=== PATIENT | female | born 1995 | race Caucasian/White ===

== ENCOUNTER → 2017-11-18 09:11 | Outpatient (CLI) | payer OTHER, SELFPAY ==
--- NOTE | 2017-11-18 09:23 | US_ITS ---
STUDY: ABDOMINAL ULTRASOUND - RIGHT UPPER QUADRANT REASON FOR VISIT: Female, 22 years old. Epigastric pain for 2 months. TECHNIQUE: Ultrasound evaluation of the right upper quadrant was performed with real-time and static parham-scale imaging. TECHNICAL QUALITY: Adequate. COMPARISON: Prior comparable comparison studies are not available for review at this time. FINDINGS: Liver: The liver measures 13.9 cm. There is normal echogenicity of the liver. The bile ducts are within normal limits. There is hepatic color flow. The direction of portal flow is hepatopetal. There is no demonstrated mass lesion. Gallbladder: Normal distended gallbladder. The gallbladder wall measures 2.9 mm. There is a negative sonographic Garcia's sign. There is no pericholecystic fluid. There are no gallstones. Common Bile Duct (C.B.D.): The common bile duct measures mm. Pancreas: Normal size of the head, body and tail of the pancreas. There is normal echogenicity of the pancreas. There is no demonstrated pancreatic mass or cyst. Right Kidney: Normal size of the right kidney. The right kidney measures 10.4 x 4.2 x 5.1 cm. Normal renal cortex. The right cortex measures 1.3 cm. There is no demonstrated renal mass or cyst. There is no right hydronephrosis. US/Abdomen Limited IMPRESSION: No sonographic evidence of acute right upper quadrant abdominal disease. Electronically Signed: Radha Zapata MD at 13:09 EST , Service support ,
== END ==
PROVIDERS: Family Provider Family Medicine; PCP Family Medicine; Visit Provider Family Medicine
DX: R10.13 Epigastric pain (principal)
CPT/HCPCS: 76705

== ENCOUNTER → 2017-11-26 15:19 | Outpatient (CLI) | payer OTHER, SELFPAY ==
[2017-11-26 18:03] LABS: Absolute Lymphocyte Count 2.19 X10^3/ul (0.83-4.51); Absolute Neutrophil Count 5.7 X10^3/uL (2.0-7.7); Basophil# 0.03 X10^3/uL; Basophil% 0.3 % (0-1); Eosinophil# 0.12 X10^3/uL; Eosinophils% 1.4 % (0-5); Hematocrit 38.2 % (37-47); Hemoglobin 12.2 g/dl (12.0-15.0); Lymphocyte # 2.19 X10^3/ul (4.0); Lymphocyte % 25.5 % (19-41); Mean Corp Hgb Conc 31.9 g/gl (32-36); Mean Corpuscular Hgb 27.3 pg (27.0-32.0); Mean Corpuscular Volume 85.5 fL (81-99); Mean Platelet Vol. 10.9 fl (6.2-12.0); Monocyte# 0.49 X10^3/uL; Monocyte% 5.7 % (0-10); Neutrophil # 5.74 X10^3/uL (2.7-7.7); Platelet Count 264 K/mm3 (150-450); RBC Distribution Width SD 40.5 fl (35.1-43.9); Red Blood Count 4.47 M/mm3 (4.2-5.4); White Blood Count 8.6 K/mm3 (4.4-11.0)
[2017-11-26 18:06] LABS: POSITIVE COUNT NO; POSITIVE DIFFERENTIAL NO; POSITIVE MORPHOLOGY NO
[2017-11-26 18:17] LABS: Erythrocyte Sedimentation Rate 3 mm/hr (0-20)
[2017-11-28 16:11] LABS: Endomysial Antibody IgA Negative (Negative)
[2017-11-29 07:16] LABS: Deamidated Gliadin IgA 2 units (0-19); Deamidated Gliadin IgG 3 units (0-19); Immunoglobulin A 120 mg/dL (87-352); t-Transglutaminase IgA <2 U/mL (0-3)
== END ==
PROVIDERS: Family Provider Family Medicine; PCP Family Medicine; Visit Provider Family Medicine
DX: R10.13 Epigastric pain (principal)
CPT/HCPCS: 36415; 82784; 83516; 85025; 85652; 86255; 86677

== ENCOUNTER → 2018-09-10 16:44 | Outpatient (CLI) | payer OTHER, SELFPAY ==
[2018-09-15 15:54] LABS: HPV Reflexed? NOT INDICATED
== END ==
PROVIDERS: Family Provider Family Medicine; PCP Family Medicine; Visit Provider Obstetrics & Gynecology
DX: Z12.4 Encounter for screening for malignant neoplasm of cervix (principal)
CPT/HCPCS: 88175; G0145

== ENCOUNTER → 2019-10-12 11:08 | Outpatient (CLI) | payer OTHER, SELFPAY | PROVIDERS: Visit Provider Obstetrics & Gynecology | DX: Z12.4 Encounter for screening for malignant neoplasm of cervix (principal) ==

== ENCOUNTER → 2021-06-12 16:36 | Outpatient (CLI) | payer OTHER, SELFPAY ==
[2021-06-12 18:06] LABS: Free T3 2.3 pg/mL (2.18-3.98); T4 Free Direct 0.79 ng/dL (0.76-1.46); Thyroid Stim Hormone (TSH) 0.97 uIU/mL (0.358-3.74)
== END ==
PROVIDERS: PCP Family Medicine; Referring Provider Family Medicine; Visit Provider Family Medicine
DX: E07.9 Disorder of thyroid, unspecified (principal)
CPT/HCPCS: 36415; 84439; 84443; 84481

== ENCOUNTER → 2021-06-19 08:01 | Outpatient (CLI) | payer OTHER, SELFPAY ==
--- NOTE | 2021-06-19 08:04 | US_ITS ---
INDICATION: THYROID MASS EXAMINATION: Ultrasound US Thyroid (eg thyroid, parathyroid, parotid) TECHNIQUE: Noble scale and color doppler imaging was performed of the thyroid gland. COMPARISON: None. FINDINGS: RIGHT THYROID LOBE: The right lobe is enlarged in size. Homogeneous echotexture with normal vascularity. A hypoechoic solid nodule is visualized in the upper pole of the right lobe demonstrating a smooth regular surface, no evidence of focal calcifications, unremarkable contours wider than longer, no evidence of calcifications. Nodule measures 1.8 x 1.5 1.0 cm The right lobe of the thyroid gland measures 5.4 x 1.9 x 2.2 cm. LEFT THYROID LOBE: Homogeneous echotexture with normal vascularity. [No thyroid nodules are present. The left lobe of the thyroid gland measures 4.8 x 1.4 x 1.4 cm. ISTHMUS: 0.2 cm in AP length. No thyroid nodules are present. US/Thyroid IMPRESSION: Enlargement of the right lobe of the thyroid gland with a 1.8 cm hypoechoic solid nodule seen. According to the Society of Radiologists in Ultrasound Consensus Conference Statement, ultrasound-guided FNA (fine needle aspiration) is recommended if nodule greater than = 1.5 cm and is almost entirely solid or has coarse calcifications; According to the Society of Radiologists in Ultrasound Consensus Conference Statement, ultrasound-guided FNA (fine needle aspiration) is recommended if: 1) nodule greater than = 1 cm with microcalcifications; 2) nodule greater than = 1.5 cm and is almost entirely solid or has coarse calcifications; 3) nodule greater than = 2.0 cm and is cystic with some solid component; 4) nodule with substantial growth since prior study. Benjamin MC, Danielito CB, Juan Jose JW, Raffy ES, Marv OH, Parker BG, et al. Management of thyroid nodules detected at US: Society of Radiologists in Ultrasound consensus conference statement. Radiology 2005;237:794-800 Electronically Signed: David Proctor MD at 13:08 EDT Tel , Service support ,
== END ==
PROVIDERS: PCP Family Medicine; Referring Provider Family Medicine; Visit Provider Family Medicine
DX: E07.9 Disorder of thyroid, unspecified (principal)
CPT/HCPCS: 76536

== ENCOUNTER → 2021-07-06 09:55 | Outpatient (CLI) | payer OTHER, SELFPAY ==
--- NOTE | 2021-07-06 09:55 | ASPS_PTH ---
PATIENT: PAMELA JEONG LOC: [facility] U#:[id number] AGE/SX: 30/F ROOM: RE07/06/[address]: Dr. Lior Green MD : 1995 BED: DIS: SPEC #: [id number] RECD: 07/06/21 15:34 STATUS: LOYD GINI #: [id number] GRECIA: 07/06/21 09:[address]: Lior Green DEPT: CYTOLOGY RECD BY: Monica Valadez ENTERED: 07/07/21 08:39 SP TYPE: ASPIRATION OTHR DR: Dr. 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 Adequate for evaluation. See comment. SJ:sharri 07/07/2021 COMMENT Correlation with clinical, radiologic findings and appropriate follow up are necessary. Case has been reviewed in consultation with Dr. Covington who concurs with the above diagnosis. IDC:AM CYTOLOGY STUDY Slides are reviewed. CYTOLOGY GROSS Received are 10 smears labeled with the patient's name and designated per the requisition as right thyroid. Submitted for staining. / sharri 07/07/2021 TC:0 CPT: 60520
== END ==
PROVIDERS: PCP Family Medicine; Referring Provider Surgery; Visit Provider Surgery
DX: E04.1 Nontoxic single thyroid nodule (principal)
CPT/HCPCS: 88161; 88313

== ENCOUNTER → 2021-07-14 10:58 | Outpatient (CLI) | payer OTHER, SELFPAY ==
--- NOTE | 2021-07-14 11:01 | US_ITS ---
STUDY: THYROID ULTRASOUND REASON FOR EXAM: Female, 26 years old. Thyroid cancer -- NEED LYMPH NODES EXAM FOR SURGERY RECOMMENDATIONS TECHNIQUE: Ultrasound evaluation of the cervical lymph nodes was performed with real-time and static parham-scale imaging. COMPARISON: None. FINDINGS: Right cervical region: There is a 3.4 cm x 1.8 cm x 0.7 cm lymph node in zone 1. Adjacent to this, there is a 1.1 cm x 1 cm x 0.4 cm lymph node. There is a 3 cm x 1 cm x 0.7 cm lymph node in zone 2. Adjacent to this there is a 1 cm x 0.9 cm x 0.3 cm lymph node. There is a 1.8 cm x 1.2 cm x 0.4 cm lymph node in zone 3. Adjacent to this, there is a 1.4 cm x 0.8 cm x 0.3 cm lymph node. There is a 1 cm x 0.8 cm x 0.2 cm lymph node in zone 5. The left cervical region: There is a 1 cm x 0.8 cm x 0.5 cm lymph node as well as a 1 cm x 1 cm x 0.4 cm lymph node in zone 1. There is a 2.1 cm x 1.3 cm x 0.5 cm lymph node in zone 2. There is a 2.2 cm x 0.8 cm x 1 cm lymph node in zone 3. There is a 1 cm x 0.8 cm x 0.3 cm lymph node in zone 3. There is a 1.1 cm x 0.7 cm x 0.2 cm lymph node in US/Head/Neck Soft Tissue IMPRESSION: Multiple bilateral cervical described. Electronically Signed: Xiang Elizalde MD at 13:10 EDT , Service support ,
--- NOTE | 2021-07-17 | ASPS_PTH ---
PATIENT: PAMELA JEONG LOC: [facility]#:[id number] AGE/SX: 30/F ROOM: RE07/14/[address]: Dr. Lior Green MD : 1995 BED: DIS: SPEC #: [id number] RECD: 07/17/21 10:35 STATUS: LOYD GINI #: [id number] GRECIA: 07/17/21 00:[address]: Lior Green DEPT: CYTOLOGY RECD BY: Rasta Ruby ENTERED: 07/17/21 11:57 SP TYPE: ASPIRATION OTHR DR: Dr. Kristian Carpenter MD Tissues: A - Thyroid gland, NOS B - Thyroid gland, NOS C - Thyroid gland, NOS Procedures: Special Stain Group II Cytology Other HEADER OPERATION: Bilateral cervical lymph node FNA x3 PRE-OP DIAGNOSIS: Enlarged cervical lymph nodes TISSUE SUBMITTED: A - Right thyroid zone 2 x6, B - Left thyroid zone 2 x4, C - Left thyroid zone 3 x5 DIAGNOSIS CYTOLOGY A. Right thyroid zone 2 cervical lymph node, FNA (smears): Negative for metastatic carcinoma. See comment. B. Left thyroid zone 2, FNA (smears): Negative for metastatic carcinoma. See comment. C. Left thyroid zone 3, FNA (smears): Negative for metastatic carcinoma. See comment. SJ:rg 07/18/2021 COMMENT A-C. The smears are cellular and show polymorphous population of lymphocytes. Please make reference to previous specimen ([id number]) right thyroid nodule, FNA with diagnosis of ?malignant cells present derived from papillary thyroid carcinoma.? Correlation with clinical, radiologic findings and appropriate follow up are necessary. Case has been reviewed in consultation with Dr. Covington who concurs with the above diagnosis. IDC:AM CYTOLOGY STUDY Slides are reviewed. CYTOLOGY GROSS A - Received are six smears labeled with the patient's name and designated per the requisition as right thyroid zone 2. Submitted for staining. B - Received are four smears labeled with the patient's name and designated per the requisition as left thyroid zone 2. Submitted for staining. C - Received are five smears labeled with the patient's name and designated per the requisition as left thyroid zone 3. Submitted for staining. / sharri 07/17/2021 TC:5 CPT: 13746 x3
== END ==
PROVIDERS: PCP Family Medicine; Referring Provider Surgery; Visit Provider Surgery
DX: R59.0 Localized enlarged lymph nodes (principal)
CPT/HCPCS: 76536; 88161; 88313

== ENCOUNTER 2021-07-31 15:40 | Observation (INO) | payer OTHER, SELFPAY ==
--- NOTE | 2021-07-28 08:43 | RAD_ITS ---
INDICATION: THYROID CANCER/PREOP EXAMINATION/TECHNIQUE: X-RAY - XR Chest 2 Views COMPARISON: None. FINDINGS: LINES/DEVICES: None. LUNGS: No consolidation, edema or effusion. No pneumothorax. MEDIASTINUM AND CARDIOVASCULAR STRUCTURES: Cardiac silhouette not enlarged. Central airways and mediastinal contour are unremarkable. BONES AND SOFT TISSUES: Unremarkable. RAD/Chest PA and Lateral IMPRESSION: No radiographic evidence of acute cardiopulmonary disease. Electronically Signed: David Proctor MD at 11:25 EDT Tel , Service support ,
[2021-07-28 09:23] LABS: Hematocrit 40.9 % (37-47); Hemoglobin 13.1 g/dL (12.0-15.0); Mean Corpuscular Hgb 28.7 pg (27.0-32.0); Mean Corpuscular Volume 89.7 fL (81-99); Mean Platelet Vol. 11.1 fl (6.2-12.0); Platelet Count 270 K/mm3 (150-450); RBC Distribution Width CV 12.9 % (11.6-14.6); RBC Distribution Width SD 42.2 fl (35.1-43.9); Red Blood Count 4.56 M/mm3 (4.2-5.4); White Blood Count 6.6 K/mm3 (4.4-11.0)
[2021-07-28 09:44] LABS: Internal QC Validated? YES +Cl - CLEAR BKGD; Pregnancy, Serum, hCG Quali. NEGATIVE Negative
[2021-07-28 09:50] LABS: Anion Gap 5 (5-15); BUN 14 mg/dL (7-18); Chloride 104 mmol/L (98-107); Creatinine, Serum 0.82 mg/dL (0.55-1.02); Glucose 86 mg/dL (74-106); Magnesium 2.1 mg/dL (1.6-2.6); Phosphorus 3.5 mg/dL (2.5-4.9); Potassium 3.8 mmol/L (3.5-5.1); Sodium Level 139 mmol/L (136-145)
[2021-07-31] VITALS (16 sets, daily range): BP systolic 90–122; BP diastolic 49–79; PULSE 57–87; RESP 16; TEMP 35.8–37.1; O2SAT 94–100; BMI 24.8; BMI 25.2
--- NOTE | 2021-07-31 05:58 | HP.PCM_ITS ---
History and Physical Date of Admission: 07/31/21 Visit Reasons: FNA results Chief Complaint: discuss surgery Endorsement Clerk Required: No Is patient in pain?: No Allergies No Known Allergies Allergy (Verified 07/20/21 07:29) Medications norgestimate 0.25 mg-ethinyl estradiol 35 mcg tablet 1 tab PO DAILY 07/04/21 [History Confirmed 07/20/21] Is last menstrual period known: No Post menopausal: No Patient : No PFSH Medical History Papillary thyroid carcinoma (~06/2021) Surgical History S/P fine needle aspiration (~06/2021) S/P wisdom tooth extraction Family History Grandmother Breast cancer Grandfather Cancer skin Social History Smoking Status: Never smoker alcohol intake: current alcohol intake frequency: a few times a month HPI HPI HPI: PAMELA JEONG, is a 26 F who presents to the office today for surgical follow-up of her suspected right thyroid isthmus papillary carcinoma based upon fine-needle aspiration and her recent fine-needle aspiration of zone 2 and 3 bilateral neck. 3 lymph nodes were sampled on July 17, 2021. All 3 samples negative for metastatic disease. In the interim she has been seen by Dr. Lance Schneider. Post surgery management has been described to the patient. Chief Complaint: right thyroid FNA Allergies No Known Allergies Allergy (Verified 07/13/21 08:53) Medications norgestimate 0.25 mg-ethinyl estradiol 35 mcg tablet 1 tab PO DAILY 07/04/21 [History Confirmed 07/06/21] PFSH Medical History (Updated 07/13/21 @ 09:14 by Lorena Marley) Papillary thyroid carcinoma (~06/2021) Surgical History S/P fine needle aspiration (~06/2021) S/P wisdom tooth extraction Family History Grandmother Breast cancer Grandfather Cancer skin Social History Smoking Status: Never smoker alcohol intake: current alcohol intake frequency: a few times a month HPI HPI HPI: PAMELA JEONG, is a 26 F who presents to the office today for surgical follow-up of a right isthmus nodule. On July 06 I performed an ultrasound-guided fine needle aspiration of this item. The nodule measures 1.8 x 1.5 x 1 cm. The right lobe measures 5.4 x 1.9 x 2.2 cm and the left lobe measures 4.8 x 1.4 x 1.4 cm. No nodules are noted on the left. Cytology demonstrates malignant cells present derived from papillary thyroid cancer. Adequate for evaluation. As of June 12, 2021 TSH was 0.97 with a free T4 of 0.79 and a free T3 of 2.3 My previous notes reflect the following Intake Intake Visit Reasons: Thyroid Mass Allergies No Known Allergies Allergy (Unverified 07/04/21 14:22) Medications norgestimate 0.25 mg-ethinyl estradiol 35 mcg tablet 1 tab PO DAILY 07/04/21 [History Confirmed 07/04/21] PFSH Surgical History S/P wisdom tooth extraction Family History Grandmother Breast cancer Grandfather Cancer skin Social History Smoking Status: Never smoker alcohol intake: current alcohol intake frequency: a few times a month HPI HPI HPI: PAMELA JEONG, is a 25 F who presents to the office today for surgical consultation regarding a thyroid nodule. The patient is referred by Dr. Kristian Carpenter root compromise surgical consult recommendations will return to him. The patient has been detected is having a right thyroid nodule. She has noted it for over a year. Because of its her persistence she brought it to the attention of Dr. Kristian Carpenter. On clinical exam and easily palpable nodules felt so thyroid ultrasound was obtained as noted below. It appears that only a thyroid ultrasound was performed and not an inspection of the neck for lymph nodes. The patient denies any previous history of radiation treatment to the head neck. Family history is notable that the mother was briefly hypothyroid but no longer is on any medications. Several months back the patient had some throat clearing problems but that always resolved. She has no hoarseness of voice problems no tenderness. She cannot detect any adenopathy. She is not aware that she has ever had COVID-19. She has not been vaccinated. June 19, 2021 INDICATION: THYROID MASS EXAMINATION: Ultrasound US Thyroid (eg thyroid, parathyroid, parotid) TECHNIQUE: Noble scale and color doppler imaging was performed of the thyroid gland. COMPARISON: None. FINDINGS: RIGHT THYROID LOBE: The right lobe is enlarged in size. Homogeneous echotexture with normal vascularity. A hypoechoic solid nodule is visualized in the upper pole of the right lobe demonstrating a smooth regular surface, no evidence of focal calcifications, unremarkable contours wider than longer, no evidence of calcifications. Nodule measures 1.8 x 1.5 1.0 cm The right lobe of the thyroid gland measures 5.4 x 1.9 x 2.2 cm. LEFT THYROID LOBE: Homogeneous echotexture with normal vascularity. [No thyroid nodules are present. The left lobe of the thyroid gland measures 4.8 x 1.4 x 1.4 cm. ISTHMUS: 0.2 cm in AP length. No thyroid nodules are present. US/Thyroid IMPRESSION: Enlargement of the right lobe of the thyroid gland with a 1.8 cm hypoechoic solid nodule seen. According to the Society of Radiologists in Ultrasound Consensus Conference Statement, ultrasound-guided FNA (fine needle aspiration) is recommended if nodule greater than = 1.5 cm and is almost entirely solid or has coarse calcifications; According to the Society of Radiologists in Ultrasound Consensus Conference Statement, ultrasound-guided FNA (fine needle aspiration) is recommended if: 1) nodule greater than = 1 cm with microcalcifications; 2) nodule greater than = 1.5 cm and is almost entirely solid or has coarse calcifications; 3) nodule greater than = 2.0 cm and is cystic with some solid component; 4) nodule with substantial growth since prior study. Benjamin MC, Danielito CB, Juan Jose JW, Raffy ES, Marv OH, Parker BG, et al. Management of thyroid nodules detected at US: Society of Radiologists in Ultrasound consensus conference statement. Radiology 2005;237:[id number] Electronically Signed: David Proctor MD at 13:08 EDT Tel , Service support , ROS General General: Yes weight change and fatigue; No appetite, colon cancer, breast cancer or weakness HEENT HEENT: No difficulty swallowing, eye injury, eye surgery, swollen glands or hoarseness Endo Endocrine: No thyroid disease, diabetes mellitus, thyroid cancer, Hair loss, heat intolerance or cold intolerance Skin Skin: No rash or changing moles Breast Breast: No left breast lump, right breast lump, nipple discharge, breast pain, abnormal mammogram, abnormal US or breast enlargement Musc Musculoskeletal: No back problems, arthritis, rheumatoid arthritis, gout or joint pain Cardio Cardiovascular: No murmur, pacemaker, heart disease, atrial fibrillation, high blood pressure, heart attack, heart stent, palpitations, shortness of breat with exertion or chest pain Psych Psychiatric: No depression, anxiety or hearing voices Resp Respiratory: No shortness of breath, No sleep apnea, No cough, No COPD, No asthma, No emphysema and No wheezing Gastro Gastrointestinal: No abdominal pain, No nausea or vomiting, No diarrhea, No constipation, No blood in stool, No acid reflux, No hemorrhoids, No ulcers, No gallbladder problem and No black,tarry stools Rupert Hematologic: No blood thinners, No blood disorders, No bleeding, No anemia and No blood clots Neuro Neurologic: No system reviewed and no additional complaints, except as documented, No as per HPI, No abnormal gait, No abnormal hearing, No abnormal movements, No abnormal speech, No behavioral changes, No burning sensations, No confusion, No convulsions, No disequilibrium, No dizziness, No localized weakness, No frequent falls, No headache(s), No lack of coordination, No loss of vision, No memory loss, No numbness, No other visual disturbances, No radicular pain, No restless legs, No sensory deficit, No syncope, No tingling, No tremor(s), No weakness and No other Exam Neck Other: Almost visible easily palpable right upper lobe thyroid nodule. Moves with swallowing. I cannot detect any cervical adenopathy. Carotids are 3+ bilateral. No bruits. Resp Effort & Inspection: normal respiratory effort Auscultation: clear to auscultation bilaterally Cardio Rate: regular rate Rhythm: regular rhythm Neuro Other: [place] is negative Assessment and Plan Assessment and Plan (1) Right thyroid nodule: Status: Acute Plan - Dr. Lior Green MD: Solitary right thyroid nodule in a 25-year-old female. This is suspicious for malignancy. I recommend a ultrasound-guided fine needle aspiration right thyroid nodule and I discussed the technique, benefit, risk, alternatives. She has had an opportunity to ask and have questions answered. Unfortunate have emergency surgery to do. We will schedule her at her earliest convenience. I appreciate the opportunity of assisting with her surgical care. Copy: Dr. Kristian Green M.D., F.A.C.S. Assessment and Plan Assessment and Plan (1) Papillary thyroid carcinoma: Status: Acute Orders: Orders: Head/Neck Soft Tissue Today C73 Plan - Dr. Lior Green MD: I have recommended the patient a detailed cervical lymph node ultrasound inspection. I have discussed in detail today with a 40-minute [id number] consultative appointment discussing surgical treatment of total thyroidectomy. We strongly discussed surgical risk features including injury to recurrent laryngeal nerve and parathyroids. We discussed potential need for central compartment lymph node dissection. She has had an opportunity to ask and have questions answered but notably somewhat overwhelmed with the information. We will proceed with definitive surgical intervention pending patient's desires and further thoughts when she has a time to process the information Copy: Dr. Kristian Green M.D., F.A.C.S ROS General General: Yes weight change and fatigue; No appetite, colon cancer, breast cancer or weakness HEENT HEENT: No difficulty swallowing, eye injury, eye surgery, swollen glands or hoarseness Endo Endocrine: No thyroid disease, diabetes mellitus, thyroid cancer, Hair loss, heat intolerance or cold intolerance Skin Skin: No rash or changing moles Breast Breast: No left breast lump, right breast lump, nipple discharge, breast pain, abnormal mammogram, abnormal US or breast enlargement Musc Musculoskeletal: No back problems, arthritis, rheumatoid arthritis, gout or joint pain Cardio Cardiovascular: No murmur, pacemaker, heart disease, atrial fibrillation, high blood pressure, heart attack, heart stent, palpitations, shortness of breat with exertion or chest pain Psych Psychiatric: No depression, anxiety or hearing voices Resp Respiratory: No shortness of breath, No sleep apnea, No cough, No COPD, No asthma, No emphysema and No wheezing Gastro Gastrointestinal: No abdominal pain, No nausea or vomiting, No diarrhea, No constipation, No blood in stool, No acid reflux, No hemorrhoids, No ulcers, No gallbladder problem and No black,tarry stools Rupert Hematologic: No blood thinners, No blood disorders, No bleeding, No anemia and No blood clots Neuro Neurologic: No system reviewed and no additional complaints, except as documented, No as per HPI, No abnormal gait, No abnormal hearing, No abnormal movements, No abnormal speech, No behavioral changes, No burning sensations, No confusion, No convulsions, No disequilibrium, No dizziness, No localized weakness, No frequent falls, No headache(s), No lack of coordination, No loss of vision, No memory loss, No numbness, No other visual disturbances, No radicular pain, No restless legs, No sensory deficit, No syncope, No tingling, No tremor(s), No weakness and No other Assessment and Plan Assessment and Plan (1) Papillary thyroid carcinoma: Status: Acute (2) Right thyroid nodule: Status: Acute Plan - Dr. Lior Green MD: Based upon the location of the tumor and the age of the patient I am recommending a total thyroidectomy. Central compartment lymph node dissection will be determined at the time of surgery. An extensive discussion with the patient was had regarding the risks benefit of prophylactic dissection versus therapeutic dissection versus no dissection. She is aware that there is a distinctly increased risk for permanent hypoparathyroidism and recurrent laryngeal nerve injury with a central compartment lymph node dissection. She has had an opportunity to ask and have questions answered. We will proceed at her discretion. At the conclusion of the appointment the patient is considering obtaining a COVID-19 vaccination. She is aware that a decision will be made at the time of her surgery as to whether we proceed with the central compartment dissection based upon the tumor and clinical findings at that time. She is well aware of the increased risk of permanent hypoparathyroidism and recurrent laryngeal nerve if that procedure is pursued. Vigorous inspection for any type of positive adenopathy will be pursued with frozen section requested. She is additionally aware that I have asked Dr. Crook to assist me with this procedure as well. Copy: Dr. Kristian Green M.D., F.A.C.S. I have re-examined the patient. There are no clinical changes since date of exam.
--- NOTE | 2021-07-31 06:01 | EX.PCM.DISCH ---
Documented by User: Dr. Lior Green MD 07/31/21 06:02 Discharge Instructions Procedure General Surgery Diet Discharge Diet: Light diet - advance as tolerated (if you have questions about your diet instructions, please talk to you doctor.) Activity Discharge Activity: May Not Drive (for 3-5 days or while taking narcotic pain medicine.) May shower in (days): 1 Lifting Restrictions: 10 pounds Dressing / Incision Call your doctor if your incision/area has: Continuous Slow Oozing, Sudden Increased Bleeding, Increased Pain/ Swelling, Increased Redness and Foul Smelling Discharge Call your doctor if you observe: Fever of 101 or Higher Suture Line Care: Avoid Pulling/Pushing and Avoid Pinching/Bending Follow Up Care Please Follow Up With: Lior Green MD When: Call [phone] to make an appointment to be seen in about 10 days. Test Results: You may shower. You may cover your incision with gauze and tape as needed to protect from clothing. Discharge Plan Admission Admit Date/Time: 07/31/21 15:40 Primary Reason for Your Visit: Thyroid cancer Attending Provider: Lior Green Primary Care Provider: Kristian Carpenter Instructions Additional Instructions / Restrictions: If perioral numbness, weakness or heart palpations occur after hours, please call [phone] and have them page the on-call general surgeon to speak with. Please obtain a calcium level tomorrow morning as we discussed. No need to fast for this lab. Start the calcium supplement regimen tonight once you get home from the hospital. Discharge Orders/Prescriptions Prescriptions: New calcitriol 0.25 mcg Capsule 0.5 mcg PO BID 14 Days Qty: 56 RF: 0 calcium citrate-vitamin D3 [Citracal Regular] 250 mg-5 mcg (200 unit) tablet 4 tab PO TID 14 Days Qty: 168 RF: 0 cholecalciferol (vitamin D3) [Vitamin D3] 125 mcg (5,000 unit) tablet 125 mcg PO DAILY 14 Days Qty: 14 RF: 0 Continued norgestimate-ethinyl estradiol [Sprintec (28)] 0.25-35 mg-mcg tablet 1 tab PO DAILY RF: 0 multivitamin Capsule 1 cap PO DAILY RF: 0 Probiotic 3 billion cell Capsule 3,000 mmu cells PO DAILY RF: 0 Other Ambulatory Orders: Calcium,Total (Routine) Timeframe: 1 Day Facility: [facility] - Location: Laboratory Ordered By: Milady HUDSON Referrals / Follow Up: Kristian Carpenter MD [Primary Care Provider] - Disposition Disposition (needs filled in before D/C Order can be placed): Home, Self Care Documented by User: TRISTAN Wooten-Johnathan 08/01/21 14:40 Discharge Plan Admission Admit Date/Time: 07/31/21 15:40 Primary Reason for Your Visit: Thyroid cancer Attending Provider: Lior Green Primary Care Provider: Kristian Carpenter Instructions Additional Instructions / Restrictions: If perioral numbness, weakness or heart palpations occur after hours, please call [phone] and have them page the on-call general surgeon to speak with. Please obtain a calcium level tomorrow morning as we discussed. No need to fast for this lab. Start the calcium supplement regimen tonight once you get home from the hospital. Discharge Orders/Prescriptions Prescriptions: New calcitriol 0.25 mcg Capsule 0.5 mcg PO BID 14 Days Qty: 56 RF: 0 calcium citrate-vitamin D3 [Citracal Regular] 250 mg-5 mcg (200 unit) tablet 4 tab PO TID 14 Days Qty: 168 RF: 0 cholecalciferol (vitamin D3) [Vitamin D3] 125 mcg (5,000 unit) tablet 125 mcg PO DAILY 14 Days Qty: 14 RF: 0 Continued norgestimate-ethinyl estradiol [Sprintec (28)] 0.25-35 mg-mcg tablet 1 tab PO DAILY RF: 0 multivitamin Capsule 1 cap PO DAILY RF: 0 Probiotic 3 billion cell Capsule 3,000 mmu cells PO DAILY RF: 0 Other Ambulatory Orders: Calcium,Total (Routine) Timeframe: 1 Day Facility: [facility] - Location: Laboratory Ordered By: Milady HUDSON Referrals / Follow Up: Kristian Carpenter MD [Primary Care Provider] - Disposition Disposition (needs filled in before D/C Order can be placed): Home, Self Care
[2021-07-31 06:14] LABS: Internal QC Validated? YES +Cl - CLEAR BKGD; Pregnancy, Urine Negative Negative
[2021-07-31] MEDS: Lactated Ringers 1,000 ML 100 ML IV ×4 (06:22→18:27)
--- NOTE | 2021-07-31 07:30 | THYROID_PTH ---
PATIENT: PAMELA JEONG LOC: [facility]3 U#:[id number] AGE/SX: 26/F ROOM: NM324 RE07/31/[address]: Dr. Lior Green MD : 1995 BED: 1 DIS: 08/01/2021 SPEC #: [id number] RECD: 07/31/21 13:54 STATUS: LOYD RUBALCAVA #: [id number] GRECIA: 07/31/21 07:[address]: Lior Green DEPT: SURGICAL PATHOLOGY RECD BY: Monica Valadez ENTERED: 08/01/21 08:39 SP TYPE: THYROID OTHR DR: Dr. 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 See cancer summary in the comment section. SJ:rg 08/02/2021 COMMENT THYROID CANCER SUMMARY Procedure: Total Thyroidectomy Tumor Focality: Unifocal Tumor Site: Right lobe and isthmus Histologic Type: Papillary carcinoma, classic (usual, conventional) Margins: Margins uninvolved by carcinoma. The tumor is <0.1 cm away from the closest anterior margin. Angioinvasion: Not identified Lymphatic Invasion: Not identified Perineural invasion: Not identified Extrathyroidal Extension: Not identified Regional Lymph Nodes: Number of lymph nodes Examined: 1 Number of Lymph nodes involved: 0 Ancillary Studies: Not identified Additional Pathologic Findings: - Benign follicular nodule. - Focal mild chronic inflammation. Clinical History: Please make reference to previous specimen ([id number]) right thyroid nodule, FNA with diagnosis of ?malignant cells present derived from papillary thyroid carcinoma. PATHOLOGIC STAGE: pT1b pN0 pMx The above summary is in compliance with [employer] [place] [employer] (CAP) Cancer Protocols Checklist and [place] [employer] Committee on Cancer (AJCC), Staging Manual, 8th Ed. MICROSCOPIC DESCRIPTION Slides are reviewed. GROSS DESCRIPTION Received fresh for frozen section diagnosis labeled with the patient's name is a specimen designated ?thyroid, stitch at anterior-superior aspect of right thyroid lobe. The specimen consists of a total thyroidectomy specimen weighing 18.4 gm. The right lobe measures 5 x 2.5 x 2.5 cm and the left lobe measures 4 x 2 x 2 cm and the isthmus measures 1.2 x 0.5 cm. The specimen is inked as follows: posterior surface right lobe, left lobe and isthmus - black, anterior surface right lobe - blue, anterior surface left lobe - green and anterior surface isthmus - yellow. Sections of the right lobe and isthmus reveal a solid brambila-white measuring 2 x 1.5 x 1 cm. The nodule is present in the lower portion of the thyroid lobe. A portion of this nodule also appears to extend into the isthmus. The isthmic portion of nodule measures up to 1 cm in greatest dimension. Sections of the left lobe do not reveal any obvious mass lesion. The entire specimen is submitted in 19 cassettes as follows: 1 - isthmus, 2-12 - right lobe (2 containing most superior portion and 12 containing most inferior portion), 13-19 - left lobe (13 containing most superior portion and 19 containing most inferior portion). / GINA:sharri 08/01/21 TC:0 CPT: 12671
[2021-07-31] MEDS: Bupivacaine Mpf 0.5% 30 ML VIAL (09:47)
--- NOTE | 2021-07-31 09:59 | PCM.OPRPT ---
Problems Associated Problem List Diagnoses (1) Papillary thyroid carcinoma: Report of Operation Date of Procedure: 07/31/21 Pre-Operative Diagnosis: Nodule right isthmus papillary thyroid carcinoma Post-Operative Diagnosis: Same Surgery/Procedure Performed:: Total thyroidectomy Description of Surgical Findings:: Timeout informed consent was obtained. 26-year-old female was taken to the operating placed supine on table underwent general tracheal intubation esthesia. Nims monitoring was utilized. Neck was gently extended. Head of bed slightly elevated. Neck was sterilely prepped and draped. A transverse suprasternal incision was created sharp dissection carried down through the subcutaneous tissue. It is of note that the this is a clean procedure no antibiotic required. The platysma was identified in size platysmal flaps were raised superiorly inferiorly. Harmonic scalpel was used for hemostasis. Strap muscles incised vertically. The trachea and thyroid cartilage identified the tumor involving the right isthmus was identified upon dissection of some of the strap muscle on top of that tumor. Worked on the right side of the thyroid carefully elevating it. The inferior pole was addressed first inferior parathyroid identified and preserved no evidence for any lymph node enlargement the gland was rotated anteriorly the middle thyroidal vein was secured with a robotic scalpel the superior pole of the right thyroid was quite high and this required a much more slow and tedious blunt dissection. Harmonic scalpel dissection was used for hemostasis. Was able to gradually rotate the right gland anteriorly and immediately found the course of the recurrent laryngeal nerve. This was confirmed with the Nims unit I then dissected free the superior parathyroid preserved fat plane was dissected off the anterior surface of the trachea and the ligament of Kahn was transected. Hemostasis-intact. No adenopathy grossly identified. A similar process was performed on the left lobe of the thyroid this was slightly less adherent. Again both the inferior and superior parathyroids on the left identified the recurrent nerve cleanly identified dissection went smoothly with minimal blood loss. Plan was delivered with no evidence of any attached parathyroid tissue the tumor appeared to be contained within the right isthmus. I placed a suture in the anterior superior aspect of the right lobe. The neck was irrigated and inspected. Next assisted with inspection of the inferior pretracheal area. Both by visualization and palpation no gross adenopathy existed. At my discussion felt that this was a 1.8 cm tumor and that the risk benefit of a bilateral sentinel node compartment due to its location and C is missed had higher risk than benefit. I elected not to pursue that. The strap muscles were approximated midline with interrupted 3-0 Vicryl. The platysma approximated with the same. Subcutaneous tissues approximated with the same. Skin edges approximated opted 5-0 Vicryl subdermal stitches. The periincisional areas anesthetized with 20 cc of 0.5% Marcaine. Surgical glue was applied. Telfa and tape dressings. Sponge and instrument and needle counts were reported to certainly be correct Specimen total thyroid. Blood loss minimal. Drains none. The patient was taken to recovery area in satisfactory addition without apparent complication Lior Green M.D., F.A.C.S. Surgeon: Lior Green office machine servicer: Justin Crook Type of Anesthesia: General and Local Anesthesiologist: Ollie Carbajal
[2021-07-31] MEDS: Calcitriol 0.25 MCG Capsule PO ×2 (12:00→19:56)
[2021-07-31] MEDS: Calcium Carbonate 500 MG Tablet 1000 MG PO ×3 (12:00→19:57)
[2021-07-31] MEDS: Acetaminophen 325 MG Tablet 650 MG PO ×2 (12:52→19:55)
[2021-07-31 15:33] LABS: Calcium,Total 8.4 mg/dL (8.5-10.1)
--- NOTE | 2021-07-31 15:48 | PCM.PN.SRG ---
Subjective Subjective Voice is clear, patient has nausea but no vomiting. Objective Data Objective Data Vital Signs: Vital Signs Temp Pulse Resp BP Pulse Ox 97.8 F 74 16 105/59 L 98 07/31/21 14:02 07/31/21 14:02 07/31/21 14:02 07/31/21 14:02 07/31/21 14:02 Oxygen Delivery Method Room Air Weight: 158 lb 11.725 oz Body Mass Index (BMI) 24.8 Intake & Output: Intake and Output for Last 24 Hours 07/29/21 07/30/21 07/31/21 23:59 23:59 23:59 Intake Total 1999 Balance 1999 Lab / Micro Data Result Diagrams: 07/28/21 08:36 07/28/21 08:36 Labs: Laboratory Results - last 24 hr 07/31/21 06:00: Urine Test Negative 07/31/21 15:10: Calcium 8.4 L Micro: Microbiology 07/28/21 08:45 Interface Orders SARS-CoV-2 Antigen (Rapid) - Final Physical Exam Narrative Neck is supple. Assessment & Plan Assessment/Plan (1) Papillary thyroid carcinoma: PLAN: Persistent postoperative nausea. Mild hypocalcemia. I believe that is pertinent observe the patient overnight. Lior Green M.D., F.A.C.S.
[2021-07-31] MEDS: Lactated Ringers 1,000 ML 30 ML IV ×2 (16:32→21:39)
[2021-07-31] MEDS: Ibuprofen 200 MG Tablet 600 MG PO (17:22)
[2021-08-01] MEDS: Ibuprofen 600 MG Tablet PO ×2 (03:25→12:01)
[2021-08-01 03:26] VITALS: BP 98/58; PULSE 70; RESP 16; TEMP 36.6; O2SAT 97
[2021-08-01 05:25] LABS: Calcium,Total 7.5 mg/dL (8.5-10.1)
--- NOTE | 2021-08-01 06:12 | PCM.PN.SRG ---
Subjective Subjective Patient feels well. No numbness tingling or symptoms. Objective Data Objective Data Vital Signs: Vital Signs Temp Pulse Resp BP Pulse Ox 97.8 F 70 16 98/58 L 97 08/01/21 03:26 08/01/21 03:26 08/01/21 03:26 08/01/21 03:26 08/01/21 03:26 Oxygen Delivery Method Room Air Weight: 161 lb 6.054 oz Body Mass Index (BMI) 25.2 Intake & Output: Intake and Output for Last 24 Hours 07/30/21 07/31/21 08/01/21 23:59 23:59 23:59 Intake Total 2938.5 / 3398.5 460 / 460 Balance 2938.5 / 3398.5 460 / 460 Lab / Micro Data Result Diagrams: 07/28/21 08:36 07/28/21 08:36 Labs: Laboratory Results - last 24 hr 07/31/21 06:00: Urine Test Negative 07/31/21 15:10: Calcium 8.4 L 08/01/21 05:06: Calcium 7.5 L Micro: Microbiology 07/28/21 08:45 Interface Orders SARS-CoV-2 Antigen (Rapid) - Final Physical Exam Narrative Neck is supple, nicely healing incision, no tenderness, [place] is negative Assessment & Plan Assessment/Plan (1) Papillary thyroid carcinoma: (2) Hypocalcemia: PLAN: Calcium levels dropped to 7.5. Will check magnesium level and replace. Will replace calcium with IV supplement. We will increase Rocaltrol. We will recheck levels and stabilized prior to discharge. Lior Green M.D., F.A.C.S.
[2021-08-01] MEDS: Calcium Gluconate 1 GM/10 ML Vial IV (06:24)
[2021-08-01] MEDS: Acetaminophen 325 MG Tablet 650 MG PO ×2 (06:32→18:02)
[2021-08-01 07:42] VITALS: BP 89/47; PULSE 80; RESP 16; TEMP 37.1; O2SAT 96
[2021-08-01] MEDS: Calcitriol 0.25 MCG Capsule 0.5 MCG PO (07:52)
[2021-08-01] MEDS: Calcium Carbonate 500 MG Tablet 1000 MG PO ×3 (07:52→16:34)
--- NOTE | 2021-08-01 07:55 | NURSING ---
Assisted to br and now sitting in recliner, denies dizziness, states she often has low bp, instructed her to call if she gets dizzy. verbalized understanding. call light in reach.,
[2021-08-01 09:53] LABS: Magnesium 2.4 mg/dL (1.6-2.6)
[2021-08-01 09:59] VITALS: BP 98/60; PULSE 90; RESP 16; TEMP 36.8; O2SAT 99
[2021-08-01] MEDS: Lactated Ringers 1,000 ML 30 ML IV (10:42)
[2021-08-01 13:05] LABS: Calcium,Total 7.5 mg/dL (8.5-10.1)
[2021-08-01 13:44] VITALS: BP 95/52; PULSE 80; PULSE 90; RESP 16; TEMP 36.9; O2SAT 99
[2021-08-01 17:08] LABS: Calcium,Total 7.9 mg/dL (8.5-10.1)
[2021-08-01 17:28] VITALS: BP 103/52; PULSE 76; RESP 18; TEMP 36.8; O2SAT 100
== END 2021-08-01 18:19 | disposition home or self-care (01) ==
LOC: SDC 17:16 → MS3 17:16
PROVIDERS: Anesthesiology; Admitting Provider Surgery; PCP Family Medicine; Referring Provider Surgery; Visit Provider Surgery
PROC: (CPT 60240; principal; 2021-07-31 07:15)
DX: C73 Malignant neoplasm of thyroid gland (principal); Z28.3 Underimmunization status; E83.51 Hypocalcemia; K21.9 Gastro-esophageal reflux disease without esophagitis
CPT/HCPCS: 00320; 60240; 36415; 71046; 80047; 81025; 82310; 83735; 83970; 84100; 84703; 85027; 87426; 88307; 96361; 96374; 97802; 99218; C9803; J7120; G0378; J0610; J2405

== ENCOUNTER → 2021-08-02 08:06 | Outpatient (CLI) | payer OTHER, SELFPAY ==
[2021-08-02 08:51] LABS: Calcium,Total 9.2 mg/dL (8.5-10.1)
== END ==
PROVIDERS: Physician Assistant; PCP Family Medicine; Referring Provider Surgery; Visit Provider Surgery
DX: E83.51 Hypocalcemia (principal)
CPT/HCPCS: 36415; 82310

== ENCOUNTER → 2021-08-04 08:30 | Outpatient (CLI) | payer OTHER, SELFPAY ==
[2021-08-04 09:44] LABS: Calcium,Total 8.6 mg/dL (8.5-10.1)
== END ==
PROVIDERS: PCP Family Medicine; Referring Provider Physician Assistant; Visit Provider Physician Assistant
DX: E83.51 Hypocalcemia (principal)
CPT/HCPCS: 36415; 82310

== ENCOUNTER → 2021-08-07 08:15 | Outpatient (CLI) | payer OTHER, SELFPAY ==
[2021-08-07 08:51] LABS: Calcium,Total 9.3 mg/dL (8.5-10.1)
[2021-08-07 11:37] LABS: PTHIN 3.2 pg/mL (18.4-80.1)
[2021-08-08 17:14] LABS: Anti-Thyroglobulin AB < 1.0 IU/mL (0.0-0.9); Thyroglobulin, Serum Qt. 11.4 ng/mL (1.5-38.5)
== END ==
PROVIDERS: Internal Medicine Endocrinology, Diabetes & Metabolism; PCP Family Medicine; Referring Provider Surgery; Visit Provider Surgery
DX: C73 Malignant neoplasm of thyroid gland (principal); E83.51 Hypocalcemia; E89.0 Postprocedural hypothyroidism
CPT/HCPCS: 36415; 82310; 83970; 84432; 86800

== ENCOUNTER → 2021-08-14 08:13 | Outpatient (CLI) | payer OTHER, SELFPAY ==
[2021-08-14 08:49] LABS: Calcium,Total 9.1 mg/dL (8.5-10.1)
== END ==
PROVIDERS: PCP Family Medicine; Referring Provider Surgery; Visit Provider Surgery
DX: E83.51 Hypocalcemia (principal); E89.0 Postprocedural hypothyroidism
CPT/HCPCS: 36415; 82310

== ENCOUNTER → 2021-08-21 08:46 | Outpatient (CLI) | payer OTHER, SELFPAY ==
[2021-08-21 09:33] LABS: Calcium,Total 9.4 mg/dL (8.5-10.1)
[2021-08-21 10:36] LABS: PTHIN 18.1 pg/mL (18.4-80.1)
== END ==
PROVIDERS: PCP Family Medicine; Referring Provider Surgery; Visit Provider Surgery
DX: E83.51 Hypocalcemia (principal)
CPT/HCPCS: 36415; 82310; 83970

== ENCOUNTER → 2021-09-08 10:04 | Outpatient (CLI) | payer OTHER, SELFPAY ==
[2021-09-13 13:58] LABS: HPV Reflexed? NOT INDICATED
== END ==
PROVIDERS: PCP Family Medicine; Visit Provider Obstetrics & Gynecology
DX: Z12.4 Encounter for screening for malignant neoplasm of cervix (principal); Z11.3 Encounter for screening for infections with a predominantly sexual mode of transmission
CPT/HCPCS: 88175; G0145

== ENCOUNTER → 2021-09-25 16:15 | Outpatient (CLI) | payer OTHER, SELFPAY ==
[2021-09-25 17:25] LABS: T4 Free Direct 0.84 ng/dL (0.76-1.46); Thyroid Stim Hormone (TSH) 8.01 uIU/mL (0.358-3.74)
== END ==
PROVIDERS: PCP Family Medicine; Visit Provider Internal Medicine Endocrinology, Diabetes & Metabolism
DX: C73 Malignant neoplasm of thyroid gland (principal); E89.0 Postprocedural hypothyroidism
CPT/HCPCS: 36415; 84439; 84443

== ENCOUNTER → 2021-10-17 16:59 | Outpatient (CLI) | payer OTHER, SELFPAY | PROVIDERS: PCP Family Medicine; Visit Provider Family Medicine | DX: U07.1 COVID-19 (principal) | CPT/HCPCS: 87635; U0005; U0003 ==

== ENCOUNTER 2021-12-22 16:36 | Outpatient (CLI) | payer OTHER, SELFPAY ==
--- NOTE | 2021-12-22 | RAD_ITS ---
STUDY: X-RAY - ABDOMEN/PELVIS REASON FOR EXAM: Female, 26 years old. Dysphagia. TECHNIQUE: Two AP supine views of the abdomen and pelvis. COMPARISON: None. FINDINGS: Normal visualized lung bases. There is an unremarkable bowel gas pattern. Air in feces is seen throughout nondistended colon. There is no small bowel dilatation. There is no demonstrated free abdominal air. The visualized liver, spleen and kidneys are grossly normal in size and morphology. Normal soft tissue structures. Normal visualized osseous structures. RAD/Colonic Trans GI/w Mul Image IMPRESSION: Question constipation without obstruction. Electronically Signed: Klever Ortega DO at 23:19 EST ,
== END 2021-12-22 23:59 | disposition home or self-care (01) ==
LOC: RAD 16:38
PROVIDERS: PCP Family Medicine; Referring Provider Family Medicine; Visit Provider Family Medicine
DX: R13.10 Dysphagia, unspecified (principal)
CPT/HCPCS: 74248; 74250

== ENCOUNTER → 2022-03-29 | Outpatient (CLI) | payer OTHER, SELFPAY ==
[2022-03-29 08:47] LABS: T4 Free Direct 0.87 ng/dL (0.76-1.46); Thyroid Stim Hormone (TSH) 3.92 uIU/mL (0.358-3.74)
[2022-04-02 20:07] LABS: Anti-Thyroglobulin AB < 1.0 IU/mL (0.0-0.9); Thyroglobulin, Serum Qt. 0.1 ng/mL (1.5-38.5)
== END | disposition home or self-care (01) ==
LOC: LAB 06:59
PROVIDERS: PCP Family Medicine; Referring Provider Internal Medicine Endocrinology, Diabetes & Metabolism; Visit Provider Internal Medicine Endocrinology, Diabetes & Metabolism
DX: E89.0 Postprocedural hypothyroidism (principal); C73 Malignant neoplasm of thyroid gland
CPT/HCPCS: 36415; 84432; 84439; 84443; 86800

== ENCOUNTER → 2022-06-27 | Outpatient (CLI) | payer OTHER, SELFPAY ==
[2022-06-27 16:05] LABS: T4 Free Direct 0.98 ng/dL (0.76-1.46); Thyroid Stim Hormone (TSH) 0.63 uIU/mL (0.358-3.74)
== END | disposition home or self-care (01) ==
LOC: PAVLAB 14:45
PROVIDERS: PCP Family Medicine; Referring Provider Internal Medicine Endocrinology, Diabetes & Metabolism; Visit Provider Internal Medicine Endocrinology, Diabetes & Metabolism
DX: E89.0 Postprocedural hypothyroidism (principal)
CPT/HCPCS: 36415; 84439; 84443

== ENCOUNTER → 2022-11-09 | Outpatient (CLI) | payer BC, SELFPAY ==
[2022-11-09 07:44] LABS: T4 Free Direct 0.98 ng/dL (0.76-1.46); Thyroid Stim Hormone (TSH) 3.15 uIU/mL (0.358-3.74)
== END | disposition home or self-care (01) ==
PROVIDERS: PCP Family Medicine; Referring Provider Nurse Practitioner Family; Visit Provider Nurse Practitioner Family
DX: E89.0 Postprocedural hypothyroidism (principal)
CPT/HCPCS: 36415; 84439; 84443

== ENCOUNTER → 2023-04-04 | Outpatient (CLI) | payer OTHER, SELFPAY ==
[2023-04-04 16:39] LABS: Absolute Lymphocyte Count 2.29 X10^3/uL (0.83-4.51); Absolute Neutrophil Count 5.5 X10^3/uL (2.0-7.7); Basophil# 0.04 X10^3/uL; Basophil% 0.5 % (0-1); Eosinophil# 0.12 X10^3/uL; Eosinophils% 1.4 % (0-5); Hematocrit 38.4 % (37-47); Hemoglobin 12.2 g/dL (12.0-15.0); Lymphocyte # 2.29 X10^3/ul (0.83-4.51); Lymphocyte % 26.9 % (19-41); Mean Corp Hgb Conc 31.8 g/dL (32-36); Mean Corpuscular Hgb 29.1 pg (27.0-32.0); Mean Corpuscular Volume 91.6 fL (81-99); Mean Platelet Vol. 10.6 fl (6.2-12.0); Monocyte# 0.51 X10^3/uL; NRBC Flagged by Analyzer 0 % (0-5); Neutrophil # 5.52 X10^3/uL (2.7-7.7); Platelet Count 282 K/mm3 (150-450); RBC Distribution Width CV 13.1 % (11.6-14.6); RBC Distribution Width SD 43.9 fl (35.1-43.9); Red Blood Count 4.19 M/mm3 (4.2-5.4); White Blood Count 8.5 K/mm3 (4.4-11.0)
[2023-04-04 17:32] LABS: Ferritin 36 ng/mL (8-252); T4 Free Direct 0.97 ng/dL (0.76-1.46)
[2023-04-08 17:07] LABS: Anti-Thyroglobulin AB < 1.0 IU/mL (0.0-0.9); Thyroglobulin, Serum Qt. 0.1 ng/mL (1.5-38.5)
== END | disposition home or self-care (01) ==
LOC: LAB 15:59
PROVIDERS: PCP Family Medicine; Visit Provider Internal Medicine Endocrinology, Diabetes & Metabolism
DX: E61.1 Iron deficiency (principal); C73 Malignant neoplasm of thyroid gland; E89.0 Postprocedural hypothyroidism
CPT/HCPCS: 36415; 82728; 84432; 84439; 84443; 85025; 86800

== ENCOUNTER → 2023-07-05 | Outpatient (CLI) | payer OTHER, SELFPAY ==
[2023-07-05 11:32] LABS: T4 Free Direct 1.12 ng/dL (0.76-1.46); Thyroid Stim Hormone (TSH) 0.75 uIU/mL (0.358-3.74)
== END | disposition home or self-care (01) ==
PROVIDERS: PCP Family Medicine; Referring Provider Internal Medicine Endocrinology, Diabetes & Metabolism; Visit Provider Internal Medicine Endocrinology, Diabetes & Metabolism
DX: E89.0 Postprocedural hypothyroidism (principal)
CPT/HCPCS: 36415; 84439; 84443

== ENCOUNTER → 2024-02-06 | Outpatient (CLI) | payer OTHER, SELFPAY ==
[2024-02-06 16:49] LABS: ALB/GLOB Ratio 0.9 RATIO (0.9-2.4); AST(SGOT) 23 U/L (15-37); Alanine Aminotransfer ALT/SGPT 33 U/L (13-56); Albumin, Serum 3.6 g/dL (3.2-5.0); Alkaline Phosphatase 69 U/L (45-117); Anion Gap 3 (5-15); BUN 11 mg/dL (7-18); BUN/Creat Ratio 16.3 RATIO (10-20); Calcium,Total 8.5 mg/dL (8.5-10.1); Chloride 103 mmol/L (98-107); Creatinine, Serum 0.68 mg/dL (0.55-1.02); EST Glomerular Filtration Rate 112 mL/min (>60); Est Glom Filt Rate - Afr Amer 135 mL/min (>60); Globulin 3.8 g/dL (2.2-4.2); Glucose 77 mg/dL (74-106); Potassium 3.8 mmol/L (3.5-5.1); Protein, Total 7.4 g/dL (6.4-8.2); Sodium Level 136 mmol/L (136-145); T4 Free Direct 0.96 ng/dL (0.76-1.46); Thyroid Stim Hormone (TSH) 0.01 uIU/mL (0.358-3.74)
[2024-02-11 09:09] LABS: Anti-Thyroglobulin AB < 1.0 IU/mL (0.0-0.9); Thyroglobulin, Serum Qt. 0.1 ng/mL (1.5-38.5)
== END | disposition home or self-care (01) ==
PROVIDERS: PCP Family Medicine; Referring Provider Internal Medicine Endocrinology, Diabetes & Metabolism; Visit Provider Internal Medicine Endocrinology, Diabetes & Metabolism
DX: E89.0 Postprocedural hypothyroidism (principal); C73 Malignant neoplasm of thyroid gland
CPT/HCPCS: 36415; 80053; 84432; 84439; 84443; 86800

== ENCOUNTER → 2024-02-14 | Outpatient (CLI) | payer OTHER, SELFPAY ==
[2024-02-14 07:14] LABS: Anion Gap 5 (5-15); BUN 16 mg/dL (7-18); BUN/Creat Ratio 21.2 RATIO (10-20); Calcium,Total 8.6 mg/dL (8.5-10.1); Chloride 105 mmol/L (98-107); Cholesterol 208 mg/dL (200); Creatinine, Serum 0.76 mg/dL (0.55-1.02); EST Glomerular Filtration Rate 98 mL/min (>60); Est Glom Filt Rate - Afr Amer 119 mL/min (>60); Glucose 84 mg/dL (74-106); High Density Lipoprotein 92 mg/dL; Potassium 3.8 mmol/L (3.5-5.1); Sodium Level 138 mmol/L (136-145); Triglycerides 51 mg/dL; Very Low Density Lipoprotein 10 mg/dL (5-40)
== END | disposition home or self-care (01) ==
LOC: LAB 06:15
PROVIDERS: PCP Family Medicine; Referring Provider Family Medicine; Visit Provider Family Medicine
DX: Z00.00 Encounter for general adult medical examination without abnormal findings (principal)
CPT/HCPCS: 36415; 80048; 80061

== ENCOUNTER → 2024-06-17 | Outpatient (CLI) | payer OTHER, SELFPAY ==
[2024-06-17 15:13] LABS: T4 Free Direct 0.91 ng/dL (0.76-1.46); Thyroid Stim Hormone (TSH) 0.534 uIU/mL (0.358-3.740)
== END | disposition home or self-care (01) ==
LOC: PAVLAB 14:30
PROVIDERS: PCP Family Medicine; Referring Provider Internal Medicine Endocrinology, Diabetes & Metabolism; Visit Provider Internal Medicine Endocrinology, Diabetes & Metabolism
DX: E89.0 Postprocedural hypothyroidism (principal); C73 Malignant neoplasm of thyroid gland
CPT/HCPCS: 36415; 84439; 84443

== ENCOUNTER → 2024-10-19 | Outpatient (CLI) | payer OTHER, SELFPAY ==
[2024-10-23 13:12] LABS: HPV Reflexed? NOT INDICATED
== END | disposition home or self-care (01) ==
LOC: LABSPEC 16:16
PROVIDERS: PCP Family Medicine; Referring Provider Nurse Practitioner Family; Visit Provider Nurse Practitioner Family
DX: Z12.4 Encounter for screening for malignant neoplasm of cervix (principal)
CPT/HCPCS: 88175; G0145

== ENCOUNTER → 2025-03-30 | Outpatient (CLI) | payer OTHER, SELFPAY ==
[2025-03-30 14:26] LABS: Thyroid Stim Hormone (TSH) 0.106 uIU/mL (0.300-4.200)
[2025-04-01 15:08] LABS: Anti-Thyroglobulin AB < 1.0 IU/mL (0.0-0.9); Thyroglobulin, Serum Qt. 0.1 ng/mL (1.5-38.5)
== END | disposition home or self-care (01) ==
LOC: PAVLAB 13:23
PROVIDERS: PCP Family Medicine; Referring Provider Internal Medicine Endocrinology, Diabetes & Metabolism; Visit Provider Internal Medicine Endocrinology, Diabetes & Metabolism
DX: C73 Malignant neoplasm of thyroid gland (principal); E89.0 Postprocedural hypothyroidism
CPT/HCPCS: 36415; 84432; 84439; 84443; 86800

== ENCOUNTER → 2025-07-08 | Outpatient (CLI) | payer OTHER, SELFPAY ==
--- NOTE | 2025-07-08 14:26 | US_ITS ---
PROCEDURE: PELVIC W/ TRANSVAGINAL REASON FOR EXAM: IRREGULAR PERIODS TECHNIQUE: Procedure Code: [id number] Modality: US Procedure: PELVIC W/ TRANSVAGINAL COMPARISON: None FINDINGS: LMP: June 21, 2025. Measurements: Uterus: 7 cm x 4.2 cm x 2.6 cm with a volume of 40.8 mL Endometrial Thickness: 3 mm. Small amount of endometrial fluid. There is evidence of an IUD. Right Ovary: 2.8 cm x 1.7 cm x 1.2 cm with a volume of 3.1 mL. Left Ovary: 2.8 cm x 2 cm x 1.5 cm with a volume of 4.6 mL. TRANSABDOMINAL: Uterus: Normal size, myometrial echotexture, and contour. Endometrium: Small amount of endometrial fluid. IUD is seen within the endometrium. Right ovary: Normal size and echotexture. Left ovary: Normal size and echotexture. Other: No large pelvic mass identified. Transvaginal sonography was performed to better visualize the endometrium. TRANSVAGINAL: Uterus: Anteverted. Endometrium: Small amount of endometrial fluid. IUD is seen within the endometrium. Right ovary: Normal size and echotexture. Left ovary: Normal size and echotexture. Other adnexal findings: None. Cul-de-sac: No free intraperitoneal fluid identified. Tenderness: No tenderness US/Pelvic w/ Transvaginal IMPRESSION: IUD is seen within the endometrium. No other abnormality is seen. Reading Location: [place] [id number]
--- OUTSIDE RECORDS SUMMARY | 2025-07-08 18:37 | XMS RPT_ITS | CCD ---
Author Organization [facility] Care Team Providers Care Artificial Glass Eye Maker Name Role Phone Dr. Kristian Carpenter Primary Care Provider Dr. Kristian Carpenter Referring Provider Dr. Lance Schneider Attending Provider Dr. Kristian Carpenter Primary Care Provider [phone] Pauline, Dr. Townsend Referring Provider JOVANY Eduardo-C Francisca Attending Provider Pauline IZQUIERDO, Dr. Townsend Primary Care Provider [phone] Pauline IZQUIERDO, Dr. Townsend Referring Provider [phone] King TIMBO, Dr. Lucas Attending Provider King TIMBO, Dr. Lucas Referring Provider Chanel SAWMILL MOULDER OPERATOR-CFunmi Attending Provider Kristian Carpenter Referring Unavailable Funmi Buchanan Attending Unavailable Kristian Carpenter Primary Care Unavailable Funmi Buchanan Attending Unavailable Kristian Carpenter Primary Care Unavailable Kristian Carpenter Referring Unavailable Funmi Buchanan Attending Unavailable CarpenterKristian dunn Primary Care Unavailable CarpenterKristian dunn Referring Unavailable Funmi Buchanan Attending Unavailable CarpenterKristian dunn Primary Care Unavailable Funmi Buchanan Referring Unavailable CarpenterKristian dunn Primary Care Unavailable Lance Schneider Attending Unavailable Lance Schneider Referring Unavailable Funmi Buchanan Attending Unavailable Funmi Buchanan Referring Unavailable Carpenter, Kristian Primary Care Unavailable Carpenter, Kristian Primary Care Unavailable Lance Schneider Attending Unavailable Kristian Carpenter Referring Unavailable Allergies Allergy Classification Reported Allergen(s) Allergy Type Date of Onset Reaction(s) Facility (10 sources) Amoxicillin Drug Allergy 01-15-2022 [facility] (1 source) Amoxicillin Drug Allergy 06-30-2025 [facility] Repository Medications Current Medications Medication Drug Class(es) Dates Sig (Normalized) Sig (Original) Norgestimate-Ethin yl Estradiol (10 sources) Progestin, Estrogen Start: 07-04-2021 take 1 tablet by mouth once daily Norgestimate-Ethi nyl Estradiol (Sprintec (28)) 0.25-35 mg-mcg tablet Active 1 TABLET PO DAILY July 04, 2021 2:22pm Start: 07-04-2021 End: 03-30-2024 Norgestimate-Ethinyl Estradi ol (Sprintec (28)) 0.25-35 mg-mcg tablet Discontinued 1 {tbl} PO DAILY July 04, 2021 12:00am March 30, 2024 1:02pm Start: 07-04-2021 take 1 tablet by lazaro th once daily Norgestimate-Ethinyl Estradiol (Sprintec (28)) 0.25-35 mg-mcg tablet Active 1 TABLET PO DAILY July 03, 2021 11:00pm Start: 07-04-2021 take 1 tablet by lazaro th once daily Norgestimate-Ethinyl Estradiol (Sprintec (28)) 0.25-35 mg-mcg tablet Active 1 TABLET PO DAILY July 04, 2021 12:00am Lactobacillus Combination No.4 (Probiotic) 3 billion cell Capsule (10 sources) Start: 07-27-2021 take 3 capsules by mouth once daily Lactobacillus Combination No.4 (Probiotic) 3 billion cell Capsule Active 3000 MMU CELLS PO DAILY July 27, 2021 2:46pm Start: 07-27-2021 End: 01-14-2023 take 3 capsules by mouth once daily Lactobacillus Combination No.4 (Probiotic) 3 billion cell Capsule Discontinued 3000 NMA PO DAILY July 27, 2021 12:00am January 14, 2023 4:01pm Start: 07-27-2021 End: 01-14-2023 take 3 capsules by mouth once daily Lactobacillus Combination No.4 (Probiotic) 3 billion cell Capsule Discontinued 3000 MMU CELLS PO DAILY July 27, 2021 12:00am January 14, 2023 4:01pm Start: 07-27-2021 take 3 capsules by m out once daily Lactobacillus Combination No.4 (Probiotic) 3 billion cell Capsule Active 3000 MMU CELLS PO DAILY July 26, 2021 11:00pm Start: 07-27-2021 take 3 capsules by m outh once daily Lactobacillus Combination No.4 (Probiotic) 3 billion cell Capsule Active 3000 MMU CELLS PO DAILY July 27, 2021 12:00am levothyroxine sodium 0.112 mg oral tablet (20 sources) l-Thyroxine Start: 03-30-2025 take 1 tablet by mouth once daily Levothyroxine (Unithroid) 112 mcg tablet Active 112 ug PO daily 90 3 March 30, 2025 12:00am Start: 03-29-2022 End: 03-30-2025 take 1 tablet by mouth once daily Levothyroxine 125 mcg tablet Discontinued 125 ug PO DAILY 30 0 March 12, 2025 11:12am March 30, 2025 2:33pm Start: 08-04-2021 End: 03-29-2022 take 1 tablet by mouth once Levothyroxine 100 mcg tabl et Discontinued 100 ug PO .daily, 1.5 on Saturday 90 0 March 29, 2022 9:21am March 29, 2022 4:50pm Magnesium (7 sources) Start: 01-14-2023 take 1 tablet by lazaro th once daily Magnesium 200 mg tablet Active 200 mg PO DAILY January 14, 2023 12:00am Start: 01-14-2023 take 200 mg by mouth once jessica y Magnesium Active 200 MG PO DAILY January 14, 2023 12:00am Multivitamin Capsule (3 sources) Start: 07-27-2021 Multivitamin C apsule Active 1 NMA PO DAILY July 27, 2021 12:00am Multivitamin preparation (7 sources) Start: 07-27-2021 take 1 capsule by mouth once daily Multivitamin Active 1 CAP PO DAILY July 27, 2021 2:46pm Start: 07-27-2021 take 1 capsule by mo [facility] once daily Multivitamin Active 1 CAP PO DAILY July 26, 2021 11:00pm Start: 07-27-2021 take 1 capsule by mo [facility] once daily Multivitamin Active 1 CAP PO DAILY July 27, 2021 12:00am Completed/Discontinued Medications Medication Drug Class(es) Dates Sig (Normalized) Sig (Original) biotin 1 mg oral capsule (7 sources) Start: 01-14-2023 End: 06-30-2025 take 1 capsule by mouth once daily Biotin 1 mg capsule Discontinued 1 mg PO DAILY January 14, 2023 12:00am June 30, 2025 3:58pm calcitriol 0.38317 mg oral capsule (10 sources) Vitamin D3 Analog Start: 08-01-2021 End: 11-09-2022 take 2 capsules by mouth twice daily Calcitriol 0.25 mcg Capsule Discontinued 0.5 ug PO TWICE A DAY 56 14 0 August 01, 2021 12:00am November 09, 2022 8:52am Start: 08-01-2021 End: 11-09-2022 take 0.5 ug by mouth twice daily Calcitriol Discontinued 0.5 MCG PO TWICE A DAY 56 14 August 01, 2021 12:00am November 09, 2022 8:52am calcium citrate 1190 mg / cholecalciferol 0.005 mg oral tablet (20 sources) Vitamin D Start: 08-01-2021 End: 11-09-2022 Calcium Citrate-Vitamin D3 (Citracal Regular) 250 mg-5 mcg (200 unit) tablet Discontinued 2 {tbl} PO THREE TIMES A DAY 84 14 0 August 02, 2021 11:50am November 09, 2022 8:52am cholecalciferol 0.125 mg oral tablet (10 sources) Vitamin D Start: 08-01-2021 End: 01-14-2023 take 1 tablet by mouth once daily Cholecalciferol (Vitamin D3) (Vitamin D3) 125 mcg (5,000 unit) tablet Discontinued 125 ug PO DAILY 14 14 0 August 01, 2021 12:00am January 14, 2023 4:01pm doxycycline hyclate 100 mg oral capsule (5 sources) Tetracycline- class Drug Start: 11-30-2023 End: 12-07-2023 take 1 capsule by mouth twice daily Doxycycline Hyclate 100 mg capsule Discontinued 100 mg PO TWICE A DAY 14 7 0 November 30, 2023 1:00am December 06, 2023 1:00am December 07, 2023 1:12am Problems Active Problems Problem Classification Problem Date Documented Date Episodic/Chronic Cancer of thyroid (16 sources) Papillary thyroid carcinoma; Translations: [Malignant neoplasm of thyroid gland] Onset: 10-21-2020 Chronic Complications of surgical procedures or medical care (16 sources) Postoperative hypothyroidism; Translations: [Postprocedural hypothyroidism] Onset: 03-30-2025 Chronic Contraceptive and procreative management (3 sources) Intrauterine contraceptive device in situ; Translations: [Encounter for routine checking of intrauterine contraceptive device] 10-19-2024 Episodic Comment on above: Copper IUD placed 2022 Menstrual disorders (2 sources) Irregular menstruation, unspecified; Translations: [Irregular menstruation, unspecified] Onset: 06-30-2025 Chronic Other nutritional; endocrine; and metabolic disorders (10 sources) Hypocalcemia; Translations: [Hypocalcemia] 08-01-2021 Chronic Other upper respiratory infections (7 sources) Acute frontal sinusitis; Translations: [Acute frontal sinusitis, unspecified] 11-30-2023 Episodic Thyroid disorders (3 sources) Thyroid nodule; Translations: [Nontoxic single thyroid nodule] 07-04-2021 Chronic Past or Other Problems Problem Classification Problem Date Documented Da te Episodic/Chronic Other screening for suspected conditions (not mental disorders or infectious disease) (1 source) Encounter for screening for malignant neoplasm of cervix; Translations: [Encounter for screening for malignant neoplasm of cervix] Onset: 11-12-2024 Episodic Results Test Name Value Interpretation Reference Range Facility Commercial Intelligence Manager Office Visit Reporton 06-30-2025 Commercial Intelligence Manager Office Visit Report [facility] [address], [address] [place] [address] OFFICE VISIT Date of Service: 06/30/25 MR#: [id number] Acct: [id number] Name: PAMELA JEONG Rep #: [id number] 30 : 1995 Provider: JHOANA Bal Age/Sex: 29/F Location[place] [facility] [place] Status: Signed Intake Vital Signs 03/30/25 13:00 06/30/25 15:58 06/30/25 15:58 Height 5 ft 6 in 5 ft 6 in 5 ft 6 in Weight: 148 lb 142 lb 8 oz BMI 23.8 23.0 BP 114/75 97/64 Blood Pressure Location Lt brachial Position Sitting Pulse 76 Pulse Source Monitor Pulse Oximetry (%) 98 Oxygen Delivery Method room air Intake Visit Reasons: Irregular periods, Copper IUD 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 Is patient in pain?: No Allergies amoxicillin Allergy (Verified 06/30/25 15:58) Hives Medications ???Medication ???Instructions ???Recorded ???Confirmed ???Type multivitamin 1 cap PO DAILY 07/27/21 06/30/25 H istory magnesium 200 mg tablet 200 mg PO DAILY 01/14/23 06/30/25 History levothyroxine 112 mcg tablet 112 mcg PO QDAY #90 tabs 03/30/25 06/30/25 Rx (Unithroid) Is last menstrual period known: Yes Last Menstrual Period: 06/16/25 Post menopausal: No Patient : No : No Control Method: paragard [facility] Medical History Postoperative primary hypothyroidism Wears contact lenses Alcohol use Thyroid disease Anemia Migraine headache History of IBS Gastric reflux Non-smoker Papillary thyroid carcinoma ( 06/2021) Surgical History S/P fine needle aspiration ( 06/2021) S/P wisdom tooth extraction Family History Grandmother Breast cancer Ovarian cancer Grandfather Cancer skin Social History household members: significant other housing: house number of children: 0 current occupational status: employed current occupation: [employer] sexually active: Yes Smoking Status: Never smoker alcohol intake: current alcohol intake frequency: a few times a month seatbelt use: always do you feel safe at home: Yes additional social history: Boyfriend - Justin NELSON Irregular periods, Copper IUD Details: PAMELA JEONG is a 29 year old who presents for irregular periods with having the copper IUD in place (2022). She reports in the past 6 months she has only had 1 menses that was on time otherwise they have been irregular with spotting in between. She reports her menses are going much longer as well. Reports prior to have this she was on combo control however went off of this due to thyroid cancer. Female Reproductive History Last Menstrual Period: 06/16/25 ROS Const Constitutional: Reports system reviewed and no additional complaints, except as documented Cardio Card: Reports system reviewed and no additional complaints, except as documented Resp Resp: Reports system reviewed and no additional complaints, except as documented : Denies pelvic pain, vaginal discharge, vaginal dryness, vaginal odor or vaginal pruritus Exam Const General: cooperative, healthy appearing, comfortable, no acute distress, well groomed and well hydrated Nutritional Appearance: well nourished Orientation: alert, awake and oriented x3 Resp Effort Inspection: normal respiratory effort, able to speak in complete sentences and symmetric chest movement General: bladder normal to palpation External Female Exam: normal external appearance and normal appearance of the urethra Urethra: normal appearance of the urethra Speculum Exam - Vagina: normal appearance of the vagina, normal vaginal discharge, no lesions and nontender Speculum Exam - Cervix: normal appearance of the cervix (IUD strings in place), no lesions and no masses Bimanual Exam- Vagina Uterus: normal bimanual exam, uterine size normal, bladder normal to palpation, normal palpation and non-tender Bimanual Exam- Adnexa, other: normal adnexae, no masses, normal and non-tender Pelvic Support: normal Skin General: no rashes or lesions noted Neuro General: patient alert, patient awake, patient oriented x3 and moves all extremities Psych Appearance: grossly normal Mental Status: mental status grossly normal Affect: normal affect Speech and Movement: speech and movement normal Attitude: cooperative Coding Level of Care Code Established Pt Off vis,est,level 3 Patient Type Established Diagnoses Irregular menses N92.6 Assessment and Plan Assessment and Plan (1) Irregular menses: Status: Acute Plan: Discussed taking IUD out vs ultrasound. Shared decision making utilized and she would like to proceed with ultraso (more content not included)... Normal [facility] Thyroglobulin w/Anti-TG ABon 04-01-2025 Anti-TG AB < 1.0 Normal 0.0-0.9 [facility] Comment on above: Order Comment: Reaso n for Laboratory Test x Result Comment: Thyr oglobulin Antibody measured by [employer] Methodology It should be noted that the presence of thyroglobulin antibodies may not be pathogenic nor diagnostic, especially at very low levels. The assay marble installer has found that four percent of individuals without evidence of thyroid disease or autoimmunity will have positive TgAb levels up to 4 IU/mL. Performed By: #### L 501.9520, L506.0400, L3300.6820 #### [facility] [address] [place], [address] THYROGLOB QUANT 0.1 ng/mL Low 1.5-38.5 [facility] Comment on above: Order Comment: Reaso n for Laboratory Test x Result Comment: Acco rding to the National Academy of Clinical Biochemistry, the reference interval for Thyroglobulin (TG) should be related to euthyroid patients and not for patients who underwent thyroidectomy. TG reference intervals for these patients depend on the residual mass of the thyroid tissue left after surgery. Establishing a post-operative baseline is recommended. The assay limit of quantitation is 0.1 ng/mL Thyroglobulin measured by [employer] Immunometric Assay Performed at: [facility] [address] [id number] Dinkey Brakeman: Viktor Tobias PhD, Phone: [phone] Performed By: #### L 716.3028, Z454.5689, B6321.6150 #### [facility] [address] [place], [place], [id number] Endocrinology Visit Reporton 03-30-2025 Endocrinology Visit Report [facility] [address] [place] [address]. [address] [place], [place] [address] OFFICE VISIT Date of Service: 03/30/25 MR#: [id number] Acct: [id number] Name: PAMELA JEONG Rep #: [id number] 19 : 1995 Provider: Shari Eden Age/Sex: 29/F [place] [facility] [place]: Signed Intake Vital Signs 03/30/24 13:02 10/12/24 11:12 03/30/25 13:00 Height 5 ft 6 in 5 ft 6 in 5 ft 6 in Weight: 157 lb 8 oz 148 lb BMI 25.4 23.8 BP 103/67 114/75 Blood Pressure Location Lt brachial Position Sitting Pulse 76 Pulse Source Monitor Pulse Oximetry (%) 98 Oxygen Delivery Method room air Intake Visit Reasons: 1 Y FU Chief Complaint: thyroid cancer Is patient in pain?: No Allergies amoxicillin Allergy (Verified 03/30/25 13:01) Hives Medications ???Medication ???Instructions ???Recorded ???Confirmed ???Type multivitamin 1 cap PO DAILY 10/07/21 06/10/25 H istory biotin 1 mg capsule 1 mg PO DAILY 01/14/23 03/30/25 Hi story magnesium 200 mg tablet 200 mg PO DAILY 01/14/23 03/30/25 History levothyroxine 125 mcg tablet 125 mcg PO DAILY #30 tabs 03/12/25 03/30/25 Rx PFSH Medical History Postoperative primary hypothyroidism Wears contact lenses Alcohol use Thyroid disease Anemia Migraine headache History of IBS Gastric reflux Non-smoker Papillary thyroid carcinoma ( 06/2021) Surgical History S/P fine needle aspiration ( 06/2021) S/P wisdom tooth extraction Family History Grandmother Breast cancer Ovarian cancer Grandfather Cancer skin Social History household members: significant other housing: house number of children: 0 current occupational status: employed current occupation: [employer] sexually active: Yes Smoking Status: Never smoker alcohol intake: current alcohol intake frequency: a few times a month seatbelt use: always do you feel safe at home: Yes additional social history: Boyfriend - Justin LESLIE HPI Chief Complaint: thyroid cancer Details: PAMELA JEONG, is a 29 F who presents to the office today for follow up. Procedure: Total ThyroidectomyTumor Focality: UnifocalTumor Site: Right lobe and isthmusHistologic Type: Papillary carcinoma, classic (usual, conventional) Margins: Margins uninvolved by carcinoma. The tumor is <0.1 cm away from the closest anterior margin.Angioinvasion: Not identifiedLymphatic Invasion: Not identifiedPerineural invasion: Not identifiedExtrathyroidal Extension: Not identifiedRegional Lymph Nodes: Number of lymph nodes Examined: 1Number of Lymph nodes involved: 0Ancillary Studies: Not identified Additional Pathologic Findings: -Benign follicular nodule She had surgery in July,. No LESLIE was given. She is taking levothyroxine appropriately. Last thyroglobulin was 0.1 in January,. Last TSH was normal in May, She is feeling well. No biotin recently, so OK to do labs. ROS Const Constitutional: No fatigue, weight change or change in appetite Eyes Eyes: No change in vision ENT ENT: No dizziness/vertigo or difficulty swallowing Cardio Cardiology: No chest pain at rest, chest pain with exertion, shortness of breath or palpitations Musc Musculoskeletal: No abnormal gait, joint pain, numbness or tingling Neuro Neurology: No abnormal gait, memory loss, numbness or tingling Psych Psychiatric: No change in appetite, No memory loss and No Thoughts of harming yourself/Others Resp Respiratory: No cough, chest congestion or shortness of breath Gastro GI: No abdominal pain, constipation, diarrhea or difficulty swallowing Genitourinary-Female: No burning urination Skin Skin: No itchy eyes or wounds Endo Endocrine: No fatigue or weight change Aller/Imm Allergy/Immunologic: No itchy eyes Exam Const General: cooperative, healthy appearing, comfortable, no acute distress, well developed and not cushingoid Nutritional Appearance: well nourished Orientation: alert, awake and oriented x3 HENMT Head: normal to inspection Ears: hearing grossly normal bilaterally Nose: external nose normal Mouth: oral mucosae normal Eyes General: appearance normal, both eyes and all related structures Alignment and Position: alignment normal Periorbital: periorbital findings normal Eyelids: eyelids normal Conjunctivae: conjunctivae normal Neck Neck: normal visual inspection Neck mass: No Thyroid: other (no palpable tissue) Lymphatic: no lymphadenopathy noted Chest Chest palpation inspection: normal inspection of the chest Resp Effort Inspection: normal respiratory ef (more content not included)... Normal [facility] T4 Free Directon 03-30-2025 T4 FREE DIRECT 1.60 ng/dL High 0.76-1.46 [facility] Comment on above: Performed By: #### L 501.9520, L506.0400, L3300.6820 #### [facility] [address] [place], [address] T4 freeOrdered By: Lance Schneider on 03-30-2025 Free T4 [Mass/Vol] 1.60 ng/dL High 0.76-1.46 [facility] TSH DL <= 0.005 mIU/L QnOrde red By: Lance Schneider on 03-30-2025 TSH Qn 0.106 uIU/mL Low 0.300-4.200 [facility] Thyroid Stim Hormone (TSH)on 03-30-2025 TSH 0.106 uIU/mL Low 0.300-4.200 [facility] Comment on above: Performed By: #### L [id number], L506.0400, L3300.6820 #### [facility] [address] [place], [place], [address] PAP I-G w/rfx hrHPV-Aptimaon 10-23-2024 ADEQ Comment Normal . [facility] Comment on above: Order Comment: Speci men Comment: [id number] Specimen Comment: Source.............Cervix Specimen Comment: LMP / Prev Treat...[id number] Specimen Comment: No. of containers..01 ThinPrep Vial Result Comment: Sati sfactory for evaluation. Endocervical and/or squamous metaplastic cells (endocervical component) are present. Performed By: #### L 7400.0353 #### [facility] [address] [place], [place], [address] COMM . Normal . [facility] Comment on above: Order Comment: Speci men Comment: [id number] Specimen Comment: Source.............Cervix Specimen Comment: LMP / Prev Treat...[id number] Specimen Comment: No. of containers..01 ThinPrep Vial Performed By: #### L 7400.0353 #### [facility] [address] [place], [place], [address] COMMENT Comment Normal . [facility] Comment on above: Order Comment: Speci men Comment: [id number] Specimen Comment: Source.............Cervix Specimen Comment: LMP / Prev Treat...[id number] Specimen Comment: No. of containers..01 ThinPrep Vial Result Comment: This liquid based ThinPrep(R) pap test was screened with the use of an image guided system. Performed By: #### L 7400.0353 #### [facility] [address] [place], [place], [id number] DIAG Comment Normal . [facility] Comment on above: Order Comment: Speci men Comment: [id number] Specimen Comment: Source.............Cervix Specimen Comment: LMP / Prev Treat...[id number] Specimen Comment: No. of containers..01 ThinPrep Vial Result Comment: NEGA TIVE FOR INTRAEPITHELIAL LESION OR MALIGNANCY. Performed By: #### L 7400.0353 #### [facility] [address] [place], [place], [address] HPV RFLX Comment Normal . [facility] Comment on above: Order Comment: Speci men Comment: [id number] Specimen Comment: Source.............Cervix Specimen Comment: LMP / Prev Treat...[id number] Specimen Comment: No. of containers..01 ThinPrep Vial Result Comment: The HPV DNA reflex criteria were not met with this specimen result therefore, no HPV testing was performed. Performed at: [address] [id number] Dinkey Brakeman: Vida Serrato MD, Phone: [phone] Performed By: #### L [id number] #### [facility] [address] [place], [place], [id number] PAPSMR Comment Normal . [facility] Comment on above: Order Comment: Speci men Comment: [id number] Specimen Comment: Source.............Cervix Specimen Comment: LMP / Prev Treat...[id number] Specimen Comment: No. of containers..01 ThinPrep Vial Result Comment: The Pap smear is a screening test designed to aid in the detection of premalignant and malignant conditions of the uterine cervix. It is not a diagnostic procedure and should not be used as the sole means of detecting cervical cancer. Both false-positive and false-negative reports do occur. Performed By: #### L 7400.0353 #### [facility] [address] [place], [address] PERFORM Comment Normal . [facility] Comment on above: Order Comment: Speci men Comment: [id number] Specimen Comment: Source.............Cervix Specimen Comment: LMP / Prev Treat...[id number] Specimen Comment: No. of containers..01 ThinPrep Vial Result Comment: Ayo Mcfarland, Pin Or Clip Fastener (ASCP) Performed By: #### L [id number] #### [facility] [address] [place], [place], [address] Commercial Intelligence Manager Office Visit Reporton 10-12-2024 Commercial Intelligence Manager Office Visit Report [facility] [address], [address] [place] [address] OFFICE VISIT Date of Service: 10/19/24 MR#: [id number] Acct: [id number] Name: PAMELA JEONG Rep #: [id number] 31 : 1995 Provider: JHOANA Bal Age/Sex: 29/F Location[place] [facility] [place] Status: Signed Intake Vital Signs 01/14/23 15:59 03/30/24 13:02 10/12/24 11:12 Height 5 ft 7 in 5 ft 6 in 5 ft 6 in Weight: 151 lb 157 lb 8 oz BMI 24.3 25.4 BP 99/63 103/67 Blood Pressure Location Rt brachial Position Sitting Pulse 52 L Pulse Source Monitor Temp 96.6 F L Pulse Oximetry (%) 100 Oxygen Delivery Method room air 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 Is patient in pain?: No Feel stressed/tense/nervous/anxio us/difficulty sleeping: not at all Allergies amoxicillin Allergy (Verified 10/19/24 14:37) Hives Medications ???Medication ???Instructions ???Recorded ???Confirmed ???Type multivitamin 1 cap PO DAILY 07/27/21 10/19/24 History biotin 1 mg capsule 1 mg PO DAILY 01/14/23 10/19/24 History magnesium 200 mg tablet 200 mg PO DAILY 01/14/23 10/19/24 History levothyroxine 125 mcg tablet 125 mcg PO DAILY #90 tabs 03/04/24 10/19/24 Rx Is last menstrual period known: Yes Last Menstrual Period: 09/29/24 Post menopausal: No Patient : No : No PFSH Medical History Postoperative primary hypothyroidism Wears contact lenses Alcohol use Thyroid disease Anemia Migraine headache History of IBS Gastric reflux Non-smoker Papillary thyroid carcinoma ( 06/2021) Surgical History S/P fine needle aspiration ( 06/2021) S/P wisdom tooth extraction Family History (Updated 10/19/24 @ 14:40 by Elaine Teague) Grandmother Breast cancer Ovarian cancer Grandfather Cancer skin Social History (Updated 10/19/24 @ 14:41 by Elaine Teague) household members: significant other housing: house number of children: 0 current occupational status: employed current occupation: [employer] sexually active: Yes Smoking Status: Never smoker alcohol intake: current alcohol intake frequency: a few times a month seatbelt use: always do you feel safe at home: Yes additional social history: Boyfriend - Justin [facility] Encounter for routine gynecological examination Details: PAMELA JEONG is a 29 year old who presents for annual exam. She reports no issues or concerns today. She does have a history of thyroid cancer. Follows with Dr. Schneider. She has copper IUD in place--this was placed last year 05/2023. Last PAP: 2020; normal History of abnormal PAP: no Last mammogram: none; history of both grandmothers with breast CA--diagnosed in their 50's/60's. History of abnormal mammogram: n/a Colon cancer screening: age 47 Other preventative health care screenings: Kristian Carpenter pcp Female Reproductive History Last Menstrual Period: 09/29/24 Cycle Length: 21-35 ROS Const Constitutional: Denies chills, fatigue, fever(s), headache(s) or weight loss Eyes Eyes: Denies change in vision ENT ENT: Denies dizziness Cardio Card: Denies chest pain at rest or palpitations Resp Resp: Denies cough GI GI: Denies abdominal pain, constipation or nausea : Denies difficulty voiding, dysuria, hematuria, nipple discharge, pelvic pain, prolapse symptoms, urinary incontinence, vaginal discharge, vaginal dryness, vaginal odor or vaginal pruritus Skin Skin/Breast: Denies alopecia, rash, breast mass, breast pain, breast skin changes or nipple discharge Neuro Neuro: Denies dizziness Psych Psych: Denies anxiety or depression Endo Endo: Denies cold intolerance, excessive sweating or heat intolerance Exam Const General: cooperative, healthy appearing, comfortable, no acute distress, well groomed and well hydrated Nutritional Appearance: well nourished Orientation: alert, awake and oriented x3 HENMT Head: normal to inspection and normocephalic Ears: hearing grossly normal bilaterally and external ears normal Nose: external nose normal Face and sinus: normal facial exam Eyes General: appearance normal, both eyes and all related structures Neck Neck: normal visual inspection, full ROM and no lymphadenopathy Thyroid: other (incisional scar) Chest Chest palpation inspection: normal inspection of the chest Breast inspection: normal inspection of the breasts and normal inspection of the axillae Breast palpation: normal palpation of the breasts, normal palpation of the axillae and no axillary lymphadenopathy Resp Effort Inspection: normal respiratory effort, able to speak in complete sentences and symmetric chest movement GI Inspection: normal to inspection Palpatio (more content not included)... Normal [facility] Basophil percentageOrdered B y: Kristian Carpenter on 02-14-2024 Chloride [Moles/Vol] 105 mmol/L 98-107 [facility] Cholesterol [Mass/Vol] 208 mg/dL <200 [facility] Comment on above: <200 mg/dL Desirable 200-240 mg/dL Borderline >240 mg/dL High Risk Glucose [Mass/Vol] 84 mg/dL 74-106 [facility] Potassium [Moles/Vol] 3.8 mmol/L 3.5-5.1 [facility] Sodium [Moles/Vol] 138 mmol/L 136-145 [facility] Triglyceride [Mass/Vol] 51 mg/dL <199 [facility] Comment on above: The drugs N-Acetylcy steine and Metamizole may falsely depress this assay.Serum Triglycerides Reference Interval Normal <150 mg/dL Borderline high 150 - 199 mg/dL High 200 - 499 mg/dL Very High > or = 500 mg/dL Laboratory - Chemistry and C hemistry - challengeOrdered By: Kristian Carpenter on 02-14-2024 Cholesterol in HDL [Mass/Vol] 92 mg/dL >40 [facility] Comment on above: The drugs N-Acetylcy steine and Metamizole may falsely depress this assay. Reference Range HDL <40 mg/dL Low HDL Cholesterol HDL >or= 60 mg/dL High HDL Cholesterol Cholesterol in LDL [Mass/Vol] 106 mg/dL 0-130 [facility] CO2 [Moles/Vol] 28.0 mmol/L 21.0-32.0 [facility] Urea nitrogen/Creatinine [Mass ratio] 21.2 mg/mg 10-20 [facility] No Panel InformationOrdered By: Kristian Carpenter on 02-14-2024 Estimated GFR (MDRD) Amer 119 mL/min >60 [facility] Comment on above: GFR Calc Estimated GFR (MDRD) Non-Af Amer 98 mL/min >60 [facility] Comment on above: Non- GFR Calc VLDL Cholesterol 10 mg/dL 5-40 [facility] Serum or plasma calcium juan urement (mass/volume)Ordered By: Kristian Carpenter on 02-14-2024 Calcium [Mass/Vol] 8.6 mg/dL 8.5-10.1 [facility] Serum or plasma creatinine m easurement (mass/volume)Ordered By: Kristian Carpenter on 02-14-2024 Creatinine [Mass/Vol] 0.76 mg/dL 0.55-1.02 [facility] Comment on above: The validity of the calculated GFR & GFRAA in patients over 70 years has not been determined. Clinical correlation is essential. Serum or plasma urea nitroge n measurement (mass/volume)Ordered By: Kristian Carpenter on 02-14-2024 Urea nitrogen [Mass/Vol] 16 mg/dL 7-18 [facility] Thin prep Papanicolaou smear with manual screeningOrdered By: Kristian Carpenter on 02-14-2024 Thin prep Papanicolaou smear with manual screening 5 5-15 [facility] Basophil percentageOrdered B y: Lance Schneider on 02-06-2024 Bilirubin [Mass/Vol] 0.30 mg/dL 0.20-1.00 [facility] Comment on above: For patients on eltr ombopag therapy, use of Dimension [place] TBIL is not recommended. Chloride [Moles/Vol] 103 mmol/L 98-107 [facility] Glucose [Mass/Vol] 77 mg/dL 74-106 [facility] Potassium [Moles/Vol] 3.8 mmol/L 3.5-5.1 [facility] Protein [Mass/Vol] 7.4 g/dL 6.4-8.2 [facility] Sodium [Moles/Vol] 136 mmol/L 136-145 [facility] Laboratory - Chemistry and C hemistry - challengeOrdered By: Lance Schneider on 02-06-2024 Albumin/Globulin [Mass ratio] 0.9 {ratio} 0.9-2.4 [facility] ALP [Catalytic activity/Vol] 69 U/L 45-117 [facility] ALT [Catalytic activity/Vol] 33 U/L 13-56 [facility] CO2 [Moles/Vol] 30.0 mmol/L 21.0-32.0 [facility] Globulin (S) [Mass/Vol] 3.8 g/dL 2.2-4.2 [facility] Urea nitrogen/Creatinine [Mass ratio] 16.3 mg/mg 10-20 [facility] No Panel InformationOrdered By: Lance Schneider on 02-06-2024 Estimated GFR (MDRD) Amer 135 mL/min >60 [facility] Comment on above: GFR Calc Estimated GFR (MDRD) Non-Af Amer 112 mL/min >60 [facility] Comment on above: Non- GFR Calc Thyroglobulin Antibody < 1.0 IU/mL 0.0-0.9 [facility] Comment on above: Thyroglobulin Antibo dy measured by Jaelyn CoulterMethodologyIt should be noted that the presence of thyroglobulinantibodies may not be pathogenic nor diagnostic, especiallyat very low levels. The assay marble installer has found thatfour percent of individuals without evidence of thyroiddisease or autoimmunity will have positive TgAb levels upto 4 IU/mL. Thyroglobulin Level 0.1 ng/mL 1.5-38.5 [facility] Comment on above: According to the [facility] [employer],the reference interval for Thyroglobulin (TG) should berelated to euthyroid patients and not for patients whounderwent thyroidectomy. TG reference intervals for thesepatients depend on the residual mass of the thyroid tissueleft after surgery. Establishing a post-operative baselineis recommended. The assay limit of quantitation is 0.1ng/mLThyroglobulin measured by Jaelyn Kwanji ImmunometricAssayPerformed at: [facility] [id number] Director: Viktor Tobias PhD, Phone: [phone] Serum or plasma calcium juan urement (mass/volume)Ordered By: Lance Schneider on 02-06-2024 Calcium [Mass/Vol] 8.5 mg/dL 8.5-10.1 [facility] Serum or plasma creatinine m easurement (mass/volume)Ordered By: Lance Schneider on 02-06-2024 Creatinine [Mass/Vol] 0.68 mg/dL 0.55-1.02 [facility] Comment on above: The validity of the calculated GFR & GFRAA in patients over 70 years has not been determined. Clinical correlation is essential. Serum or plasma thyroid stim ulating hormone (TSH) measurement (units/volume)Ordered By: Lance Schneider on 02-06-2024 TSH Qn 0.01 uIU/mL 0.358-3.74 [facility] Serum or plasma urea nitroge n measurement (mass/volume)Ordered By: Lance Schneider on 02-06-2024 Urea nitrogen [Mass/Vol] 11 mg/dL 7-18 [facility] Thin prep Papanicolaou smear with manual screeningOrdered By: Lance Schneider on 02-06-2024 Thin prep Papanicolaou smear with manual screening 3.6 g/dL 3.2-5.0 [facility] Thin prep Papanicolaou smear with manual screening 23 U/L 15-37 [facility] Thin prep Papanicolaou smear with manual screening 3 5-15 [facility] Thin prep Papanicolaou smear with manual screening 0.96 ng/dL 0.76-1.46 [facility] Laboratory - Chemistry and C hemistry - challengeOrdered By: Lance Schneider on 07-05-2023 Free T4 [Mass/Vol] 1.12 ng/dL 0.76-1.46 [facility] No Panel InformationOrdered By: Lance Schneider on 07-05-2023 Thyroid Stimulating Hormone (TSH) 0.75 uIU/mL 0.358-3.74 [facility] Absolute lymphocyte countOrd ered By: Dr. Schneider on 04-04-2023 Lymphocytes Auto (Unsp spec) [#/Vol] 2.29 10*3/uL 0.83-4.51 [facility] Basophil percentageOrdered B y: Dr. Schneider on 04-04-2023 Basophils/100 WBC (Bld) 0.5 % 0-1 [facility] Eosinophils/100 WBC (Bld) 1.4 % 0-5 [facility] Neutrophils (Bld) [#/Vol] 5.5 10*3/uL 2.0-7.7 [facility] Neutrophils/100 WBC (Bld) 65.0 % 47-70 [facility] WBC (Bld) [#/Vol] 8.5 10*3/uL 4.4-11.0 [facility] Blood erythrocytes count (nu mber/volume)Ordered By: Dr. Schneider on 04-04-2023 RBC (Bld) [#/Vol] 4.19 10*6/uL 4.2-5.4 [facility] Blood hemoglobin measurement (mass/volume)Ordered By: Dr. Schneider on 04-04-2023 Hemoglobin (Bld) [Mass/Vol] 12.2 g/dL 12.0-15.0 [facility] Blood lymphocytes/100 leukoc ytesOrdered By: Dr. Schneider on 04-04-2023 Lymphocytes/100 WBC (Bld) 26.9 % 19-41 [facility] Blood monocytes/100 leukocyt esOrdered By: Dr. Schneider on 04-04-2023 Monocytes/100 WBC (Bld) 6.0 % 0-10 [facility] Blood platelet mean volumeOr dered By: Dr. Schneider on 04-04-2023 Platelet mean volume (Bld) [Entitic vol] 10.6 fL 6.2-12.0 [facility] Determination of erythrocyte mean corpuscular volume (MCV)Ordered By: Dr. Schneider on 04-04-2023 MCV (RBC) [Entitic vol] 91.6 fL 81-99 [facility] Hematocrit Auto (Bld) [Volum e fraction]Ordered By: Dr. Schneider on 04-04-2023 Hematocrit (Bld) [Volume fraction] 38.4 % 37-47 [facility] Laboratory - Chemistry and C hemistry - challengeOrdered By: Dr. Schneider on 04-04-2023 Free T4 [Mass/Vol] 0.97 ng/dL 0.76-1.46 [facility] Laboratory - Hematology and Cell countsOrdered By: Dr. Schneider on 04-04-2023 Erythrocyte distribution width (RBC) [Entitic vol] 43.9 fL 35.1-43.9 [facility] Erythrocyte distribution width (RBC) [Ratio] 13.1 % 11.6-14.6 [facility] Immature granulocytes/100 WBC (Bld) 0.200 % 0.0-0.9 [facility] Comment on above: IG% - Immature Granu locytes (promyelocytes, myelocytes and metamyelocytes) > 1% indicates that a LEFT SHIFT is Present. MCH (RBC) [Entitic mass] 29.1 pg 27.0-32.0 [facility] Nucleated RBC/100 WBC (Bld) [Ratio] 0 % 0-5 [facility] MCHC Auto (RBC) [Mass/Vol]Or dered By: Dr. Schneider on 04-04-2023 MCHC (RBC) [Mass/Vol] 31.8 g/dL 32-36 [facility] No Panel InformationOrdered By: Dr. Schneider on 04-04-2023 Thyroglobulin Antibody < 1.0 IU/mL 0.0-0.9 [facility] Comment on above: Thyroglobulin Antibo dy measured by Jaelyn CoulterMethodology Thyroglobulin Level 0.1 ng/mL 1.5-38.5 [facility] Comment on above: According to the [facility] [employer]ochemistry,the reference interval for Thyroglobulin (TG) should berelated to euthyroid patients and not for patients whounderwent thyroidectomy. TG reference intervals for thesepatients depend on the residual mass of the thyroid tissueleft after surgery. Establishing a post-operative baselineis recommended. The assay limit of quantitation is 0.1ng/mLThyroglobulin measured by Jaelyn [place] ImmunometricAssayPerformed at: [id number] [place], [place] [id number] Director: Viktor Tobias PhD, Phone: [phone] Thyroid Stimulating Hormone (TSH) 0.80 uIU/mL 0.358-3.74 [facility] Platelets bldOrdered By: Dr. Schneider on 04-04-2023 Platelets (Bld) [#/Vol] 282 10*3/uL 150-450 [facility] Serum or plasma ferritin jan surement (mass/volume)Ordered By: Dr. Schneider on 04-04-2023 Ferritin [Mass/Vol] 36 ng/mL 8-252 [facility] Laboratory - Chemistry and C hemistry - challengeOrdered By: Iesha Davis on 11-09-2022 Free T4 [Mass/Vol] 0.98 ng/dL 0.76-1.46 [facility] No Panel InformationOrdered By: Iesha Davis on 11-09-2022 Thyroid Stimulating Hormone (TSH) 3.15 uIU/mL 0.358-3.74 [facility] Basophil percentageOrdered B y: HEALTH ASSESSMENT on 08-02-2022 Cholesterol [Mass/Vol] 178 mg/dL <200 [facility] Comment on above: <200 mg/dL Desirable 200-240 mg/dL Borderline >240 mg/dL High Risk Glucose [Mass/Vol] 78 mg/dL 74-106 [facility] Triglyceride [Mass/Vol] 69 mg/dL <199 [facility] Comment on above: The drugs N-Acetylcy steine and Metamizole may falsely depress this assay.Serum Triglycerides Reference Interval Normal <150 mg/dL Borderline high 150 - 199 mg/dL High 200 - 499 mg/dL Very High > or = 500 mg/dL Serum or plasma cholesterol in HDL measurement (mass/volume)Ordered By: HEALTH ASSESSMENT on 08-02-2022 Cholesterol in HDL [Mass/Vol] 76 mg/dL >40 [facility] Comment on above: The drugs N-Acetylcy steine and Metamizole may falsely depress this assay. Reference Range HDL <40 mg/dL Low HDL Cholesterol HDL >or= 60 mg/dL High HDL Cholesterol Serum or plasma cholesterol in VLDL measurement (mass/volume)Ordered By: HEALTH ASSESSMENT on 08-02-2022 Cholesterol in VLDL [Mass/Vol] 14 mg/dL 5-40 [facility] Serum or plasma low density lipoprotein (LDL) cholesterol measurement (mass/volume)Ordered By: HEALTH ASSESSMENT on 08-02-2022 Cholesterol in LDL [Mass/Vol] 88 mg/dL 0-130 [facility] Laboratory - Chemistry and C hemistry - challengeon 06-27-2022 Free T4 [Mass/Vol] 0.98 ng/dL 0.76-1.46 [facility] Work Phone: No Panel Informationon 06-27 Thyroid Stimulating Hormone (TSH) 0.63 uIU/mL 0.358-3.74 [facility] Work Phone: Laboratory - Chemistry and C hemistry - challengeon 03-29-2022 Free T4 [Mass/Vol] 0.87 ng/dL 0.76-1.46 [facility] Work Phone: No Panel Informationon 03-29 Thyroglobulin Antibody < 1.0 IU/mL 0.0-0.9 [facility] Work Phone: Comment on above: Thyroglobulin Antibo dy measured by Jaelyn CoulterMethodology Thyroglobulin Level 0.1 ng/mL 1.5-38.5 [facility] Work Phone: Comment on above: According to the Count includes the [facility] Academy of Clinical Biochemistry,the reference interval for Thyroglobulin (TG) should berelated to euthyroid patients and not for patients whounderwent thyroidectomy. TG reference intervals for thesepatients depend on the residual mass of the thyroid tissueleft after surgery. Establishing a post-operative baselineis recommended. The assay limit of quantitation is 0.1ng/mLThyroglobulin measured by Jaelyn [place] ImmunometricAssayPerformed at: - [facility] [id number] Director: Viktor Tobias PhD, Phone: [phone] Thyroid Stimulating Hormone (TSH) 3.92 uIU/mL 0.358-3.74 [facility] Work Phone: Vital Signs Date Time Vital Sign Value Performing Clinician Newton wallace 06-30-2025 15:58-0400 Body height 167.[address] Kristian Carpenter MD Work Phone: [phone] [place] [address] 06-30-2025 15:58-0400 Body mass index (BMI) [Ratio] 23 kg/m2 Dr. Kristian Carpenter MD Work Phone: [phone])[phone] [place] [address] 06-30-2025 15:58-0400 Body weight 64.[address] Kristian Carpenter MD Work Phone: 8(492)324-699731 [place] [address] 06-30-2025 15:58-0400 Diastolic blood pressure 64 mm[Hg] Dr. Kristian Carpenter MD Work Phone: [phone])652-368731 [place] [address] 06-30-2025 15:58-0400 Systolic blood pressure 97 mm[Hg] Dr. Kristian Carpenter MD Work Phone: 6(093)978-207831 [place] [address] 03-30-2025 13:00-0400 Body height 167.[address] Kristian Carpenter MD Work Phone: 6([phone])274-923531 [place] [address] 03-30-2025 13:00-0400 Body mass index (BMI) [Ratio] 23.8 kg/m2 Dr. Kristian Carpenter MD Work Phone: 1(878)469-221231 [place] [address] 03-30-2025 13:00-0400 Body weight 67.[address] Kristian Carpenter MD Work Phone: 4(576)923-892131 [place] [address] 03-30-2025 13:00-0400 Diastolic blood pressure 75 mm[Hg] Dr. Kristian Carpenter MD Work Phone: [phone])217-686831 [place] [address] 03-30-2025 13:00-0400 Heart rate 76 /min Dr. Kristian Carpenter MD Work Phone: [phone] [place] [address] 03-30-2025 13:00-0400 SaO2% (BldA) [Mass fraction] 98 % Dr. Kristian Carpenter MD Work Phone: [phone])[phone] [place] [address] 03-30-2025 13:00-0400 Systolic blood pressure 114 mm[Hg] Dr. Kristian Carpenter MD Work Phone: 7([phone])419-280831 [place] [address] 11-30-2023 10:36-0500 Body height 167.[address] Kristian Carpenter Work Phone: [facility] 11-30-2023 10:36-0500 Body mass index (BMI) [Ratio] 24.3 kg/m2 Dr. Kristian Carpenter Work Phone: [facility] 11-30-2023 10:36-0500 Body temperature 98.4 [degF] Dr. Kristian Carpenter Work Phone: [facility] 11-30-2023 10:36-0500 Body weight 68.[address] Kristian Carpenter Work Phone: [facility] 11-30-2023 10:36-0500 Diastolic blood pressure 68 mm[Hg] Dr. Kristian Carpenter Work Phone: [facility] 11-30-2023 10:36-0500 Heart rate 100 /min Dr. Kristian Carpenter Work Phone: [facility] 11-30-2023 10:36-0500 Respiratory rate 12 /min Dr. Kristian Carpenter Work Phone: [facility] 11-30-2023 10:36-0500 SaO2% (BldA) [Mass fraction] 96 % Dr. Kristian Carpenter Work Phone: [facility] 11-30-2023 10:36-0500 Systolic blood pressure 112 mm[Hg] Dr. Kristian Carpenter Work Phone: [facility] 01-14-2023 15:59-0400 Body height 170.[address] Kristian Carpenter Work Phone: [facility] 01-14-2023 15:59-0400 Body mass index (BMI) [Ratio] 23.6 kg/m2 Dr. Kristian Carpenter Work Phone: [facility] 01-14-2023 15:59-0400 Body temperature 98.2 [degF] Dr. Kristian Carpenter Work Phone: [facility] 01-14-2023 15:59-0400 Body weight 68.[address] Kristian Carpenter Work Phone: [facility] 01-14-2023 15:59-0400 Diastolic blood pressure 61 mm[Hg] Dr. Kristian Carpenter Work Phone: [facility] 01-14-2023 15:59-0400 Heart rate 61 /min Dr. Kristian Carpenter Work Phone: [facility] 01-14-2023 15:59-0400 Respiratory rate 18 /min Dr. Kristian Carpenter Work Phone: [facility] 01-14-2023 15:59-0400 SaO2% (BldA) [Mass fraction] 97 % Dr. Kristian Carpenter Work Phone: [facility] 01-14-2023 15:59-0400 Systolic blood pressure 95 mm[Hg] Dr. Kristian Carpenter Work Phone: [facility] 01-15-2022 16:03-0400 Body height 170.[address] Kristian Carpenter Work Phone: [facility] Work Phone: 01-15-2022 16:03-0400 Body mass index (BMI) [Ratio] 25.9 kg/m2 Dr. Kristian Carpenter Work Phone: [facility] Work Phone: 01-15-2022 16:03-0400 Body temperature 95.5 [degF] Dr. Kristian Carpenter Work Phone: [facility] Work Phone: 01-15-2022 16:03-0400 Body weight 74.[address] Kristian Carpenter Work Phone: [facility] Work Phone: 01-15-2022 16:03-0400 Diastolic blood pressure 80 mm[Hg] Dr. Kristian Carpenter Work Phone: [facility] Work Phone: 01-15-2022 16:03-0400 Heart rate 56 /min Dr. Kristian Carpenter Work Phone: [facility] Work Phone: 01-15-2022 16:03-0400 Respiratory rate 16 /min Dr. Kristian Carpenter Work Phone: [facility] Work Phone: 01-15-2022 16:03-0400 SaO2% (BldA) [Mass fraction] 99 % Dr. Kristian Carpenter Work Phone: [facility] Work Phone: 01-15-2022 16:03-0400 Systolic blood pressure 122 mm[Hg] Dr. Kristian Carpenter Work Phone: [facility] Work Phone: Encounters Encounter Date Encounter Type Care Provider Facility Start: 07-08-2025 ambulatory [facility] Facility :[facility] Start: 06-30-2025 End: 06-30-2025 Patient encounter procedure Funmi Buchanan NP-C -[facility] Work Phone: Start: 06-30-2025 End: 06-30-[address] Kristian Carpenter MD Work Phone: -[facility] Start: 03-30-2025 End: 03-30-[address] Lance Schneider MD -[facility] Work Phone: Start: 03-30-2025 End: 03-30-[address] Kristian Carpenter MD Work Phone: [facility] Work Phone: Start: 03-30-2025 End: 03-30-2025 ambulatory Kristian Carpenter Facility:[facility] Start: 10-19-2024 End: 10-19-2024 ambulatory Funmi Buchanan [place] Start: 10-19-2024 End: 10-19-2024 ambulatory Funmi Buchanan Facility:[facility] Start: 02-14-2024 End: 02-14-[address] Kristian Carpenter Work Phone: [facility] Work Phone: Start: 02-14-2024 End: 02-14-[address] Kristian Carpenter Work Phone: [facility] Work Phone: Start: 02-06-2024 End: 02-06-[address] Kristian Carpenter Work Phone: [facility] Work Phone: Start: 02-06-2024 End: 02-06-[address] Kristian Carpenter Work Phone: [facility] Start: 11-30-2023 End: 11-30-[address] Kristian Carpenter Work Phone: [facility] Work Phone: Start: 07-05-2023 End: 07-05-2023 ambulatory [facility] Work Phone: Start: 07-05-2023 End: 07-05-2023 [facility] Start: 04-04-2023 End: 04-04-[address] Kristian Carpenter Work Phone: [facility] Work Phone: Start: 04-04-2023 End: 04-04-[address] Kristian Carpenter Work Phone: [facility] Start: 01-14-2023 End: 01-14-[address] Kristian Carpenter Work Phone: [facility] Start: 11-09-2022 End: 11-09-2022 ambulatory [facility] Work Phone: Start: 11-09-2022 End: 11-09-2022 [facility] Start: 08-02-2022 Registered Referred [facility] Start: 06-27-2022 End: 06-27-2022 ambulatory [facility] Work Phone: Start: 06-27-2022 End: 06-27-2022 Patient encounter procedure [facility] Start: 03-29-2022 End: 03-29-[address] Kristian Carpenter Work Phone: [facility] Start: 01-15-2022 End: 01-15-[address] Kristian Carpenter Work Phone: [facility] Start: 12-22-2021 End: 12-22-[address] Kristian Carpenter Work Phone: [facility], [facility] Procedures Date Procedure Procedure Detail Performing Clinician Start: 03-30-[address] Kristian crystal MD Work Phone: Comment on above: According to the National Academy of Cli nical Biochemistry,the reference interval for Thyroglobulin (TG) should berelated to euthyroid patients and not for patients whounderwent thyroidectomy. TG reference intervals for thesepatients depend on the residual mass of the thyroid tissueleft after surgery. Establishing a post-operative baselineis recommended. The assay limit of quantitation is 0.1ng/mLThyroglobulin measured by [employer] ImmunometricAssayPerformed at: [facility] [id number] Director: Viktor Tobias PhD, Phone: [phone] Start: 03-30-[address] Marcelo Carpenter MD Work Phone: Comment on above: Thyroglobulin Antibody measured by drumbi CoulterMethodologyIt should be noted that the presence of thyroglobulinantibodies may not be pathogenic nor diagnostic, especiallyat very low levels. The assay marble installer has found thatfour percent of individuals without evidence of thyroiddisease or autoimmunity will have positive TgAb levels upto 4 IU/mL. Start: 12-22-2021 X-ray for colonic transit study Dr. Kristian Carpenter Work Phone: Plan of Treatment Date Care Activity Detail Author Start: 03-30-2025 T4 free measurement [facility] Start: 03-30-2025 Thyroglobulin and Th yrogobulin Ab panel - Serum or Plasma [facility] Start: 03-30-2025 Thyroid stimulating hormone measurement [facility] T4 free measurement [facility] Thyroglobulin antibo dy measurement [facility] Thyroid stimulating hormone measurement [facility] Immunizations Immunization Date Immunization Notes Care Provider Fa cility 07-21-2021 Daniel ([employer]) Dr. Kristian john Work Phone: [facility] Payers Date Payer Category Payer Self-pay [id number] 2023 Private Health Insurance [id number] Private Health Insurance [id number] Unknown [id number] Unknown [id number] 2.16.8 [id number] Unknown [id number] 2.16.8 [id number] Unknown [id number] 2.16.8 [id number] Unknown [id number] 2.16.8 [id number] Unknown [id number] 2.16.8 [id number] Unknown [id number] 2.16.8 [id number] Unknown [id number] 2.16.8 [id number] Social History Date Type Detail Facility Start: 01-15-2022 End: 11-30-2023 Tobacco smoking status NHIS Unknown if ever smoked [facility] Start: 1995 Sex Assigned At Female W [facility] Start: 10-19-2024 Tobacco smoking stat us NHIS Never smoked tobacco (finding) [facility] Medical Equipment Procedure Code Equipment Code Equipment Origin al Text Equipment Identifier Dates Thyroidectomy DRESSING,FIBRILL AR 1X2 1960 FDA Start: 07-31-2021 Thyroidectomy SUTURE,LIGA CLIP MED LT200 FDA Start: 07-31-2021 Thyroidectomy SUTURE,LIGA CLIP SM LT-100 FDA Start: 07-31-2021 Thyroidectomy DRESSING,FIBRILL AR 1X2 1960 FDA Start: 07-31-2021 Thyroidectomy SUTURE,LIGA CLIP MED LT200 FDA Start: 07-31-2021 Thyroidectomy SUTURE,LIGA CLIP SM LT-100 FDA Start: 07-31-2021 Thyroidectomy DRESSING,FIBRILL AR 1X2 1960 FDA Start: 07-31-2021 Thyroidectomy SUTURE,LIGA CLIP MED LT200 FDA Start: 07-31-2021 Thyroidectomy SUTURE,LIGA CLIP SM LT-100 FDA Start: 07-31-2021 Thyroidectomy DRESSING,FIBRILL AR 1X2 1960 FDA Start: 07-31-2021 Thyroidectomy SUTURE,LIGA CLIP MED LT200 FDA Start: 07-31-2021 Thyroidectomy SUTURE,LIGA CLIP SM LT-100 FDA Start: 07-31-2021 Thyroidectomy DRESSING,FIBRILL AR 1X2 1960 FDA Start: 07-31-2021 Thyroidectomy SUTURE,LIGA CLIP MED LT200 FDA Start: 07-31-2021 Thyroidectomy SUTURE,LIGA CLIP SM LT-100 FDA Start: 07-31-2021 Thyroidectomy DRESSING,FIBRILL AR 1X2 1960 FDA Start: 07-31-2021 Thyroidectomy SUTURE,LIGA CLIP MED LT200 FDA Start: 07-31-2021 Thyroidectomy SUTURE,LIGA CLIP SM LT-100 FDA Start: 07-31-2021 Thyroidectomy DRESSING,FIBRILL AR 1X2 1960 FDA Start: 07-31-2021 Thyroidectomy SUTURE,LIGA CLIP MED LT200 FDA Start: 07-31-2021 Thyroidectomy SUTURE,LIGA CLIP SM LT-100 FDA Start: 07-31-2021 Thyroidectomy DRESSING,FIBRILL AR 1X2 1960 FDA Start: 07-31-2021 Thyroidectomy SUTURE,LIGA CLIP MED LT200 FDA Start: 07-31-2021 Thyroidectomy SUTURE,LIGA CLIP SM LT-100 FDA Start: 07-31-2021 Thyroidectomy DRESSING,FIBRILL AR 1X2 1 FDA Start: 07-31-2021 Thyroidectomy SUTURE,LIGA CLIP MED LT200 FDA Start: 07-31-2021 Thyroidectomy SUTURE,LIGA CLIP SM LT-100 FDA Start: 07-31-2021 Thyroidectomy DRESSING,FIBRILL AR 1X2 1 FDA Start: 07-31-2021 Thyroidectomy SUTURE,LIGA CLIP MED LT200 FDA Start: 07-31-2021 Thyroidectomy SUTURE,LIGA CLIP SM LT-100 FDA Start: 07-31-2021 Evaluation note 03-30-2025 Note Date & Type Note Facility 03-30-2025 Evaluation note Diagnosis Onset Date Resolution Papillary thyroid carcinoma 2020 chronic March 30, 2025 12:59pm Postoperative primary hypothyroidism chronic March 30, 2025 12:59pm [facility] Work Phone: Progress note 03-30-2025 Note Date & Type Note Facility 03-30-2025 Progress note [facility] Progress note 03-30-2025 Note Date & Type Note Facility 03-30-2025 Progress note Note Date/Time March 30, 2025 1:22pm [facility] [address] [facility] [place] [phone] OFFICE VISIT Date of Service: 03/30/25 MR#: [id number] Acct: [id number] Name: PAMELA JEONG Rep #: [id number] : 1995 Provider: Dr. Lance Schneider MD Age/Sex: 29/F [place] [facility] [place]: Signed Intake Vital Signs 03/30/24 13:02 10/12/24 11:12 03/30/25 13:00 Height 5 ft 6 in 5 ft 6 in 5 ft 6 in Weight: 157 lb 8 oz 148 lb BMI 25.4 23.8 BP 103/67 114/75 Blood Pressure Location Lt brachial Position Sitting Pulse 76 Pulse Source Monitor Pulse Oximetry (%) 98 Oxygen Delivery Method room air Intake Visit Reasons: 1 Y FU Chief Complaint: thyroid cancer Is patient in pain?: No Allergies amoxicillin Allergy (Verified 03/30/25 13:01) Hives Medications ?Medication ?Instructions ?Recorded ?Confirmed ?Type multivitamin 1 cap PO DAILY 07/27/2103/21 History biotin 1 mg capsule 1 mg PO DAILY 01/14/2303/30 History magnesium 200 mg tablet 200 mg PO DAILY 01/14/2308/14 History levothyroxine 125 mcg tablet 125 mcg PO DAILY #30 tabs 03/12/25 03/30/25 Rx PFSH Medical History Postoperative primary hypothyroidism Wears contact lenses Alcohol use Thyroid disease Anemia Migraine headache History of IBS Gastric reflux Non-smoker Papillary thyroid carcinoma (~06/2021) Surgical History S/P fine needle aspiration (~06/2021) S/P wisdom tooth extraction Family History Grandmother Breast cancer Ovarian cancer Grandfather Cancer skin Social History household members: significant other housing: house number of children: 0 current occupational status: employed current occupation: [employer] sexually active: Yes Smoking Status: Never smoker alcohol intake: current alcohol intake frequency: a few times a month seatbelt use: always do you feel safe at home: Yes additional social history: Boyfriend - Justin NELSON LESLIE Chief Complaint: thyroid cancer Details: PAMELA JEONG, is a 29 F who presents to the office today for follow up. Procedure: Total ThyroidectomyTumor Focality: UnifocalTumor Site: Right lobe and isthmusHistologic Type: Papillary carcinoma, classic (usual, conventional) Margins: Margins uninvolved by carcinoma. The tumor is <0.1 cm away from the closest anterior margin.Angioinvasion: Not identifiedLymphatic Invasion: Not identifiedPerineural invasion: Not identifiedExtrathyroidal Extension: Not identifiedRegional Lymph Nodes: Number of lymph nodes Examined: 1Number of Lymph nodes involved: 0Ancillary Studies: Not identified Additional PathologicFindings: -Benign follicular nodule She had surgery in July,. No LESLIE was given. She is taking levothyroxine appropriately. Last thyroglobulin was 0.1 in January,. Last TSH was normal in May, She is feeling well. No biotin recently, so OK to do labs. ROS Const Constitutional: No fatigue, weight change or change in appetite Eyes Eyes: No change in vision ENT ENT: No dizziness/vertigo or difficulty swallowing Cardio Cardiology: No chest pain at rest, chest pain with exertion, shortness of breathor palpitations Musc Musculoskeletal: No abnormal gait, joint pain, numbness or tingling Neuro Neurology: No abnormal gait, memory loss, numbness or tingling Psych Psychiatric: No change in appetite, No memory loss and No Thoughts of harming yourself/Others Resp Respiratory: No cough, chest congestion or shortness of breath Gastro GI: No abdominal pain, constipation, diarrhea or difficulty swallowing Genitourinary-Female: No burning urination Skin Skin: No itchy eyes or wounds Endo Endocrine: No fatigue or weight change Aller/Imm Allergy/Immunologic: No itchy eyes Exam Const General: cooperative, healthy appearing, comfortable, no acute distress, well developed and not cushingoid Nutritional Appearance: well nourished Orientation: alert, awake and oriented x3 HENMT Head: normal to inspection Ears: hearing grossly normal bilaterally Nose: external nose normal Mouth: oral mucosae normal Eyes General: appearance normal, both eyes and all related structures Alignment and Position: alignment normal Periorbital: periorbital findings normal Eyelids: eyelids normal Conjunctivae: conjunctivae normal Neck Neck: normal visual inspection Neck mass: No Thyroid: other (no palpable tissue) Lymphatic: no lymphadenopathy noted Chest Chest palpation & inspection: normal inspection of the chest Resp Effort & Inspection: normal respiratory effort, able to speak in complete sentences, symmetric chest movement, no audible wheezes and no cough Auscultation: Bilateral: Clear to Auscultation Cardio Rate: regular rate Rhythm: regular rhythm Pulses: posterior tibial pulses present Skin General: no rashes or lesions noted Neuro General: patient alert, patient awake and patient oriented x3 Cranial Nerves: CN's II-XI intact bilaterally Cognition: normal cognition Speech: speech normal Gait: normal gait Motor: muscle tone normal throughout Extrem General: no edema Psych Appearance: grossly normal Mental Status: mental status grossly normal Mood: congruent mood Affect: normal affect Speech and Movement: speech and movement normal Attitude: cooperative Thought Process: normal Thought Content: normal Judgment: judgment good Assessment and Plan Assessment and Plan (1) Postoperative primary hypothyroidism: Status: Chronic Plan: Take levothyroxine on an empty stomach with water at least four hours after eating. Then wait 30-60 minutes before consuming any other food or beverage, especially coffee. Separate levothyroxine from vitamins by at least 4 hours. Stop taking any biotin supplement 4 days prior to having labs drawn. Check labs (2) Papillary thyroid carcinoma: Status: Chronic Plan: Check TG level. No current evidence of disease. I have spent [30] minutes today reviewing labs, records and history. Time includes coordinating care, interpretation of tests, discussion with patient's other health care providers via telephone. This also includes time I spent with the patient for exam, treatment plan and education as well as documenting clinical information. Orders: Orders Thyroglobulin w/Anti-TG AB Today C73 - Malignant neoplasm of thyroid gland, E89.0 - Postprocedural hypothyroidism Thyroid Stim Hormone (TSH) Today C73 - Malignant neoplasm of thyroid gland, E89.0 - Postprocedural hypothyroidism T4 Free Direct Today C73 - Malignant neoplasm of thyroid gland, E89.0 - Postprocedural hypothyroidism Coding Level of Care Code Off vis,est,level 4 Diagnoses Postoperative primary hypothyroidism E89.0 Papillary thyroid carcinoma C73 03/30/25 1322 <Electronically signed by Lance Schneider MD> Date _ Lance Schneider MD Cosigner Signature: Date (if applicable) CC: Dr. Kristian Carpenter MD ~ [facility] [employer] Work Phone: Evaluation note Note Date & Type Note Facility Evaluation note Diagnosis Onset Date Papillary thyroid carcinoma 2020 acute Postoperative primary hypothyroidism acute [facility] Work Phone: Evaluation note Note Date & Type Note Facility Evaluation note No assessment information availa ble [facility] Work Phone: Evaluation note Note Date & Type Note Facility Evaluation note Diagnosis Onset Date Acute frontal sinusitis acut e [facility] Work Phone: Evaluation note Note Date & Type Note Facility Evaluation note Diagnosis Onset Date Resolution Papillary thyroid carcinoma 2020 chronic March 30, 2025 12:59pm Postoperative primary hypothyroidism chronic March 30, 2025 12:59pm [facility] Work Phone: Reason for referral (narrative) Note Date & Type Note Facility Reason for referral (narrative) No reason for referral information available [facility] Work Phone: Chief Complaint and Reason for Visit Chief Complaint Admit Date 1 Y FU March 30, 2025 12:5 9pm Irregular periods, Copper IUD June 30, 2025 3:49pm Reason for Visit Admit Date Papillary thyroid carcinoma March 30, 2 025 12:59pm Postoperative primary hypothyroidism Mar 12:59pm Chief Complaint DYSPHAGIA 6 M FU INT LABS Reason for Visit Papillary thyroid ca rcinoma Postoperative primary hypothyroidism Chief Complaint INT LABS Chief Complaint 1 Y FU Reason for Visit Papillary thyroid ca rcinoma Postoperative primary hypothyroidism Chief Complaint CONGESTION, FEVER Reason for Visit Acute frontal sinusi tis Chief Complaint Admit Date 1 Y FU March 30, 2025 12:5 9pm Family History No Family History Records Found Relationship Condition Age at Onset Recorded Date/T chuy grandmother Malignant neoplasm of breast Unknown grandfather Malignant neoplasm Unknown Relationship Condition Age at Onset Recorded Date/T chuy grandmother Malignant neoplasm of breast Unknown Malignant neoplasm of ovary Unknown grandfather Malignant neoplasm Unknown Advance Directives No Advanced Directives Records Found Advance Directive Response Recorded Date/ Time Living Will No July 31 8:02pm Power of Cafeteria Assistant No July 31, 2021 8:02pm Advance Directive Response Recorded Date/ Time Living Will No July 31 7:02pm Power of Cafeteria Assistant No July 31, 2021 7:02pm Advance Directive Response Recorded Date/ Time Living Will No July 31 8:02pm Do you have a Healthcare Power of Cafeteria Assistant? No July 31, 2021 8:02pm Summary Purpose Additional Source Comments Goals (unrecognized section and content) Goals may be documented in a n alternate sectionGoals may be documented in an alternate sectionGoals may be documented in an alternate sectionGoals may be documented in an alternate sectionGoals may be documented in an alternate sectionGoals may be documented in an alternate sectionGoals may be documented in an alternate sectionGoals may be documented in an alternate sectionGoals may be documented in an alternate sectionGoals may be documented in an alternate section Care Teams (unrecognized sec tion and content) Team Status: Active Member Role Status Dates Dr. Kristian Carpenter MD Primary Care Provider Active Team Status: Inactive Member Role Status Dates Dr. Kristian Carpenter MD Primary Care Provider, Referring Provider Active Dr. Lance Schneider MD Attending Provider Active Team Status: Inactive Member Role Status Dates Dr. Kristian Carpenter MD Primary Care Provider Active Dr. Lance Schneider MD Attending Provider Active Team Status: Active Member Role Status Dates Dr. Kristian Carpenter MD Primary Care Provider Active Health Risk Assessment Attending Provider Active Team Status: Inactive Member Role Status Dates Dr. Kristian Carpenter MD Primary Care Provider Active Iesha Davis NP-C Attending Provider, Referring Pr ovider Active Team Status: Inactive Member Role Status Dates Dr. Kristian Carpenter MD Primary Care Provider Active Dr. Lance Schneider MD Attending Provider, Referring Provi elie Active Team Status: Inactive Member Role Status Dates Dr. Kristian Carpenter MD Primary Care Provider, Referring Provider Active JHOANA Wells Attending Provider Active Team Status: Active Member Role Status Dates Dr. Kristian Carpenter MD Primary Care Provi elie, Attending Provider, Referring Provider Active Team Status: Inactive Member Role Status Dates Dr. Kristian Carpenter MD Primary Care Provi elie, Attending Provider, Referring Provider Active Team Status: Inactive Member Role Status Dates Dr. Kristian Carpenter MD Primary Care Provider Active Start: March 30, 2025 End: March 30, 2025 Dr. Kristian Carpenter MD Referring Provider Active Start: March 30, 2025 End: March 30, 2025 Dr. Lance Schneider MD Attending Provider Active Sta rt: March 30, 2025 End: March 30, 2025 Team Status: Active Member Role Status Dates Dr. Kristian Carpenter MD Primary Care Provider Active Start: March 30, 2025 Dr. Lance Schneider MD Attending Provider Active Sta rt: March 30, 2025 Dr. Lance Schneider MD Referring Provider Active Sta rt: March 30, 2025 Team Status: Inactive Member Role Status Dates Dr. Kristian Carpenter MD Primary Care Provider Active Start: March 30, 2025 End: March 30, 2025 Dr. Lance Schneider MD Attending Provider Active Sta rt: March 30, 2025 End: March 30, 2025 Dr. Lance Schneider MD Referring Provider Active Sta rt: March 30, 2025 End: March 30, 2025 Team Status: Active Member Role/Relationship Status Dates Dr. Kristian Carpenter MD Primary Care Provider Active Team Status: Inactive Member Role/Relationship Status Dates Dr. Kristian Carpenter MD Primary Care Provider Active Start: March 30, 2025 End: March 30, 2025 Dr. Kristian Carpenter MD Referring Provider Active Start: March 30, 2025 End: March 30, 2025 Dr. Lance Schneider MD Attending Provider Active Sta rt: March 30, 2025 End: March 30, 2025 Team Status: Inactive Member Role/Relationship Status Dates Dr. Kristian Carpenter MD Primary Care Provider Active Start: March 30, 2025 End: March 30, 2025 Dr. Lance Schneider MD Attending Provider Active Sta rt: March 30, 2025 End: March 30, 2025 Dr. Lance Schneider MD Referring Provider Active Sta rt: March 30, 2025 End: March 30, 2025 Team Status: Inactive Member Role/Relationship Status Dates Dr. Kristian Carpenter MD Primary Care Provider Active Start: June 30, 2025 End: June 30, 2025 Dr. Kristian Carpenter MD Referring Provider Active Start: June 30, 2025 End: June 30, 2025 JHOANA Mary Attending Provider Active Start: June 30, 2025 End: June 30, 2025 INFORMATION SOURCE (unrecogn ized section and content) DATE CREATED AUTHOR 07/07/2025 [facility] FOR RECORDS PERTAINING TO PATIENTS WHO ARE OR HAVE BEEN ENROLLED IN A CHEMICAL DEPENDENCY/SUBSTANCEABUSE PROGRAM, SOME INFORMATION MAY BE OMITTED. This clinical summary was aggregated from multiple sources. Caution should be exercised in using it in the provision of clinical care. This summary normalizes information from multiple sources, and as a consequence, information in this document may materially change the coding, format and clinical context of patient data. In addition, data may be omitted in some cases. CLINICAL DECISIONS SHOULD BE BASED ON THE PRIMARY CLINICAL RECORDS. [employer] [facility]. provides no warranty or guarantee of the accuracy or completeness of information in this document.
== END | disposition home or self-care (01) ==
LOC: US 14:25
PROVIDERS: PCP Family Medicine; Referring Provider Nurse Practitioner Family; Visit Provider Nurse Practitioner Family
DX: N92.6 Irregular menstruation, unspecified (principal)
CPT/HCPCS: 76830; 76856

== ENCOUNTER → 2025-09-28 | Outpatient (CLI) | payer OTHER, SELFPAY ==
--- OUTSIDE RECORDS SUMMARY | 2025-09-28 19:06 | XMS RPT_ITS | CCD ---
Author Organization [facility] CliniSywv Care Team Providers Care Grain Operations Manager Name Role Phone Dr. Kristian Carpenter Primary Care Provider Dr. Kristian Carpenter Referring Provider Dr. Lance Schneider Attending Provider Dr. Kristian Carpenter Primary Care Provider Dr. Kristian Carpenter Referring Provider Alesha HOME CARE CONSULTANT-C Francisca Attending Provider Pauline IZQUIERDO, Dr. Townsend Primary Care Provider Dr. Kristian Carpenter MD Referring Provider [phone] Dr. Lance Schneider MD Attending Provider King TIMBO, Dr. Lucas Referring Provider Chanel HOME CARE CONSULTANT-CFunmi Attending Provider Kristian Carpenter Primary Care Unavailable Lance Schneider Attending Unavailable Lance Schneider Referring Unavailable Pauline, Kristian Primary Care Unavailable Funmi Buchanan Referring Unavailable Funmi Buchanan Attending Unavailable Kristian Carpenter Primary Care Unavailable Lance Schneider Attending Unavailable Kristian Carpenter Referring Unavailable Carpenter, Kristian Primary Care Unavailable Pauline, Kristian Referring Unavailable Funmi Buchanan Attending Unavailable Funmi Buchanan Attending Unavailable Pauline, Kristian Primary Care Unavailable Kristian Carpenter Referring Unavailable Chely Escobar Attending Unavailable Pauline, Kristian Referring Unavailable Carpenter, Kristian Primary Care Unavailable Funmi Buchanan Attending Unavailable Pauline, Kristian Primary Care Unavailable Carpenter, Kristian Referring Unavailable Funmi Buchanan Attending Unavailable Funmi Buchanan Referring Unavailable Pauline, Kristian Primary Care Unavailable Dr. Kristian Carpenter MD Primary Care Physician Dr. Lance Schneider MD Attending Physician Funmi Rajan Attending Physician [phone] Funmi Rajan Referring Provider Luz IZQUIERDO, Dr. Mo Attending Physician Allergies Allergy Classification Reported Allergen(s) Allergy Type Date of Onset Reaction(s) Facility (12 sources) Amoxicillin Drug Allergy 01-15-2022 [facility] (1 source) Amoxicillin Drug Allergy 07-19-2025 [facility] Repository Medications Current Medications Medication Drug Class(es) Dates Sig (Normalized) Sig (Original) Norgestimate-Ethin yl Estradiol (12 sources) Progestin, Estrogen Start: 07-04-2021 take 1 [...] Combination No.4 (Probiotic) 3 billion cell Capsule (12 sources) Start: 07-27-2021 take 3 capsules by [...] daily 90 3 March 30, 2025 12:00am Complies with drug therapy Start: 03-29-2022 End: 03-30-2025 take 1 tablet by mouth once daily Levothyroxine 125 mcg tablet Discontinued 125 ug PO DAILY 30 0 March 12, 2025 11:12am March 30, 2025 2:33pm Start: 08-04-2021 End: 03-29-2022 take 1 tablet by mouth once Levothyroxine 100 mcg tabl et Discontinued 100 ug PO .COMPLEX 90 0 March 29, 2022 9:21am March 29, 2022 4:50pm Frequency: daily, 1.5 on Saturday Multivitamin preparation (7 sources) Start: 07-27-2021 take 1 capsule by mouth once daily Multivitamin Active 1 CAP PO DAILY July 27, 2021 2:46pm Start: 07-27-2021 take 1 capsule by mo uth once daily Multivitamin Active 1 CAP PO DAILY July 26, 2021 11:00pm Start: 07-27-2021 take 1 capsule by mo uth once daily Multivitamin Active 1 CAP PO DAILY July 27, 2021 12:00am Completed/Discontinued Medications Medication Drug Class(es) Dates Sig (Normalized) Sig (Original) biotin 1 mg oral capsule (9 sources) Start: 01-14-2023 End: 06-30-2025 take 1 capsule by mouth once daily Biotin 1 mg capsule Discontinued 1 mg PO DAILY January 14, 2023 12:00am June 30, 2025 3:58pm calcitriol 0.29450 mg oral capsule (12 sources) Vitamin D3 Analog Start: 08-01-2021 End: [...] 2022 8:52am cholecalciferol 0.125 mg oral tablet (12 sources) Vitamin D Start: 08-01-2021 End: 01-14-2023 take 1 tablet by mouth once daily Cholecalciferol (Vitamin D3) (Vitamin D3) 125 mcg (5,000 unit) tablet Discontinued 125 ug PO DAILY 14 14 0 August 01, 2021 12:00am January 14, 2023 4:01pm doxycycline hyclate 100 mg oral capsule (7 sources) Tetracycline- class Drug Start: 11-30-2023 End: 12-07-2023 take 1 capsule by mouth twice daily Doxycycline Hyclate 100 mg capsule Discontinued 100 mg PO TWICE A DAY 14 7 0 November 30, 2023 1:00am December 06, 2023 1:00am December 07, 2023 1:12am Magnesium (9 sources) Start: 01-14-2023 End: 07-19-2025 take 1 tablet by mouth once daily Magnesium 200 mg tablet Discontinued 200 mg PO DAILY January 14, 2023 12:00am July 19, 2025 1:09pm Start: 01-14-2023 take 1 tablet by lazaro th once daily Magnesium 200 mg tablet Active 200 mg PO DAILY January 14, 2023 12:00am Start: 01-14-2023 take 200 mg by mouth once jessica y Magnesium Active 200 MG PO DAILY January 14, 2023 12:00am Multivitamin Capsule (5 sources) Start: 07-27-2021 End: 07-19-2025 Multivitamin Capsule Discont inued 1 NMA PO DAILY July 27, 2021 12:00am July 19, 2025 1:09pm Start: 07-27-2021 Multivitamin C apsule Active 1 NMA PO DAILY July 27, 2021 12:00am Problems Active Problems Problem Classification Problem Date Documented Date Episodic/Chronic Cancer of thyroid (20 sources) Papillary thyroid carcinoma; Translations: [Malignant neoplasm of thyroid gland] Onset: 10-21-2020 Chronic Complications of surgical procedures or medical care (20 sources) Postoperative hypothyroidism; Translations: [Postprocedural hypothyroidism] Onset: 03-30-2025 Chronic Contraceptive and procreative management (7 sources) Intrauterine contraceptive device in situ; Translations: [Encounter for routine checking of intrauterine contraceptive device] 10-19-2024 Episodic Comment on above: Copper IUD placed 2022 Menstrual disorders (7 sources) Irregular menstruation, unspecified; Translations: [Irregular periods] Onset: 07-20-2025 06-30-2025 Chronic Other nutritional; endocrine; and metabolic disorders (12 sources) Hypocalcemia; Translations: [Hypocalcemia] 08-01-2021 Chronic Other upper respiratory infections (9 sources) Acute frontal sinusitis; Translations: [Acute frontal [...] Test Name Value Interpretation Reference Range Facility [facility] Office Visit Reporton 07-19-2025 [facility] Office Visit Report [facility] [address], [address] [place] [address] OFFICE VISIT Date of Service: 07/19/25 MR#: [id number] Acct: [id number] Name: PAMELA JEONG Rep #: [id number] 12 : 1995 Provider: Dr. Chely gomes MD Age/Sex: 30/F [place] [facility] [place]: Signed Intake Vital Signs 06/30/25 15:58 07/19/25 13:09 07/19/25 13:10 Height 5 ft 6 in 5 ft 6 in 5 ft 6 in Weight: 141 lb 9 oz BMI 22.8 BP 103/66 Intake Visit Reasons: Surgical consult/IUD removal Client Insights Consultant Required: No Is patient in pain?: No Allergies amoxicillin Allergy (Verified 07/19/25 13:09) Hives Medications ???Medication ???Instructions ???Recorded ???Confirmed ???Type levothyroxine 112 mcg tablet 112 mcg PO QDAY #90 tabs 03/30/25 07/19/25 Rx (Unithroid) Is last menstrual period known: Yes Last Menstrual Period: 06/21/25 Post menopausal: No Patient : No : No Control Method: paragard PFS Medical History Postoperative primary hypothyroidism Wears contact [...] 0 current occupational status: employed current occupation: [employer] sexually active: Yes Smoking Status: Never smoker alcohol intake: current alcohol intake frequency: a few times a month seatbelt use: always do you feel safe at home: Yes additional social history: Boyfriend - Justin NELSON Surgical consult/IUD removal Details: PAMELA JEONG is a 30 year old who presents for follow up of iud she was told it may be incorrectly positioned. Female Reproductive History Last Menstrual Period: 06/21/25 ROS Const Constitutional: Denies fatigue, fever(s), headache(s), increased appetite, poor appetite, weight gain or weight loss GI GI: Reports as per HPI; Denies abdominal pain, constipation, nausea or vomiting : Reports as per HPI; Denies difficulty voiding, dysuria, hematuria, pelvic pain, urinary frequency, urinary incontinence, urinary hesitancy, urinary urgency, vaginal discharge, vaginal dryness, vaginal odor, vaginal pruritus or other Exam Const General: cooperative, healthy appearing, comfortable, no acute distress and well developed Orientation: alert [facility] Head: normal to inspection and normocephalic Ears: hearing grossly normal bilaterally and external ears normal Nose: external nose normal and nares normal Face and sinus: normal facial exam Neck Neck: normal visual inspection, no lymphadenopathy and trachea midline Thyroid: thyroid normal Resp Effort Inspection: normal respiratory effort Musc Other: gross motor intact no deficits, full bilateral strength Skin General: no rashes or lesions noted Neuro Motor: muscle tone normal throughout Coding Level of Care Code Off vis,est,level 2 Diagnoses Encounter for management of intrauterine contraceptive device (IUD) Z30.431 Irregular menses N92.6 Assessment and Plan Assessment and Plan (1) Encounter for management of intrauterine contraceptive device (IUD): Status: Acute Comment: Copper IUD placed 05/2023 (2) Irregular menses: Status: Acute Plan discussed with patient, correctly positioned within the endometrium, patient wishes to keep at this time. routine fu 07/19/25 1331 Date Chely Escobar MD Cosigner Signature: Date (if applicable) CC: Normal [facility] Pelvic w/ Transvaginalon Pelvic w/ Transvaginal [facility] [address] [place] [address] Pelvic w/ Transvaginal MR#: [id number] Acct: [id number] Name: PAMELA JEONG Rep #: [id number] : 1995 F 29 From: Xiang triindad MD PCP: Dr. Kristian Carpenter MD Status: REG CLI Study: Pelvic w/ Transvaginal Date of Exam: 07/08/25 Exam# [id number] Ordering Dr: Funmi Buchanan HOME CARE CONSULTANT-C PROCEDURE: PELVIC W/ TRANSVAGINAL REASON FOR EXAM: IRREGULAR PERIODS TECHNIQUE: Procedure Code: [id number] Modality: US Procedure: PELVIC W/ TRANSVAGINAL COMPARISON: None FINDINGS: LMP: June 21, 2025. Measurements: Uterus: 7 cm x 4.2 cm x 2.6 cm with a volume of 40.8 mL Endometrial Thickness: 3 mm. Small amount of endometrial fluid. There is evidence of an IUD. Right Ovary: 2.8 cm x 1.7 cm x 1.2 cm with a volume of 3.1 mL. Left Ovary: 2.8 cm x 2 cm x 1.5 cm with a volume of 4.6 mL. TRANSABDOMINAL: Uterus: Normal size, myometrial echotexture, and contour. Endometrium: Small amount of endometrial fluid. IUD is seen within the endometrium. Right ovary: Normal size and echotexture. Left ovary: Normal size and echotexture. Other: No large pelvic mass identified. Transvaginal sonography was performed to better visualize the endometrium. TRANSVAGINAL: Uterus: Anteverted. Endometrium: Small amount of endometrial fluid. IUD is seen within the endometrium. Right ovary: Normal size and echotexture. Left ovary: Normal size and echotexture. Other adnexal findings: None. Cul-de-sac: No free intraperitoneal fluid identified. Tenderness: No tenderness US/Pelvic w/ Transvaginal IMPRESSION: IUD is seen within the endometrium. No other abnormality is seen. Reading Location: [place] [address] CC: JHOANA Buchanan; Dr. Kristian Carpenter MD Field Geologist: Signed Normal [facility] Office Visit Reporton 06-30-2025 Boot Turner Office Visit Report [facility] [address], [address] [place] [address] OFFICE VISIT Date of Service: 06/30/25 MR#: [id number] Acct: [id number] Name: PAMELA JEONG Rep #: [id number] 30 : 1995 Provider: JHOANA Bal Age/Sex: 29/F [place] [facility] [place] Status: Signed Intake Vital Signs 03/30/25 13:00 [...] Intake Visit Reasons: Irregular periods, Copper IUD Client Insights Consultant Required: No Is patient in pain?: No [...] : No : No Control Method: paragard [facility] Medical History Postoperative primary hypothyroidism Wears contact [...] 0 current occupational status: employed current occupation: [employer] sexually active: Yes Smoking Status: Never smoker [...] with ultraso (more content not included)... Normal [facility] Thyroglobulin w/Anti-TG ABon 04-01-2025 Anti-TG AB < 1.0 Normal 0.0-0.9 [facility] Comment on above: Order Comment: Reaso n for Laboratory Test x Result Comment: Thyr oglobulin Antibody measured by Jaelyn Laura Methodology It should be noted that the presence of thyroglobulin antibodies may not be pathogenic nor diagnostic, especially at very low levels. The assay kiln stoker has found that four percent of individuals without evidence of thyroid disease or autoimmunity will have positive TgAb levels up to 4 IU/mL. Performed By: #### L 501.9520, L3300.6820, L506.0400 #### [facility] [address] [place] [address], [address] THYROGLOB QUANT 0.1 ng/mL Low 1.5-38.5 [facility] Comment on above: Order Comment: Reaso [...] quantitation is 0.1 ng/mL Thyroglobulin measured by Rypos Immunometric Assay Performed at: [facility] [address] [id number] Spun Paste Machine Operator: Viktor Tobias PhD, Phone: [phone] Performed By: #### L 924.1594, E3890.5640, A310.5353 #### [facility] [address] [place], [address] Endocrinology Visit Reporton 03-30-2025 Endocrinology Visit Report [facility] [address] [place] [address] OFFICE VISIT Date of Service: 03/30/25 MR#: [id number] Acct: [id number] Name: PAMELA JEONG Rep #: [id number] 19 : 1995 Provider: Shari Eden Age/Sex: 29/F Location: [facility] [place] Status: Signed Intake Vital Signs 03/30/24 13:02 [...] ???Type multivitamin 1 cap PO DAILY 07/27/21 03/30/25 H istory biotin 1 mg capsule 1 [...] 0 current occupational status: employed current occupation: [employer] sexually active: Yes Smoking Status: Never smoker alcohol intake: current alcohol intake frequency: a few times a month seatbelt use: always do you feel safe at home: Yes additional social history: Boyfriend - Justin HPI HPI Chief Complaint: thyroid cancer Details: PAMELA [...] respiratory ef (more content not included)... Normal [facility] T4 Free Directon 03-30-2025 T4 FREE DIRECT 1.60 ng/dL High 0.76-1.46 [facility] Comment on above: Performed By: #### L 501.9520, L3300.6820, L506.0400 #### [facility] [address] [place], [place], [id number] T4 freeOrdered By: Lance Schneider on 03-30-2025 Free T4 [Mass/Vol] 1.60 ng/dL High 0.76-1.46 [facility] TSH DL <= 0.005 mIU/L QnOrde red By: Lance Schneider on 03-30-2025 TSH Qn 0.106 uIU/mL Low 0.300-4.200 [facility] Thyroid Stim Hormone (TSH)on 03-30-2025 TSH 0.106 uIU/mL Low 0.300-4.200 [facility] Comment on above: Performed By: #### L [id number], L3300.6820, L506.0400 #### [facility] [address] [place], [place], [id number] PAP I-G w/rfx hrHPV-Aptimaon 10-23-2024 ADEQ Comment Normal . [facility] Comment on above: Order Comment: Speci men Comment: [id number] Specimen Comment: Source.............Cervix Specimen Comment: LMP / Prev Treat...[id number] Specimen Comment: No. of containers..01 ThinPrep Vial Result Comment: Sati sfactory for evaluation. Endocervical and/or squamous metaplastic cells (endocervical component) are present. Performed By: #### L 7400.0353 #### [facility] [address] [place], [place], [id number] COMM . Normal . [facility] Comment on above: Order Comment: Speci men Comment: [id number] Specimen Comment: Source.............Cervix Specimen Comment: LMP / Prev Treat...[id number] Specimen Comment: No. of containers..01 ThinPrep Vial Performed By: #### L 7400.0353 #### [facility] [address] [place], [place], [id number] COMMENT Comment Normal . [facility] Comment on above: Order Comment: Speci men Comment: [id number] Specimen Comment: Source.............Cervix Specimen Comment: LMP / Prev Treat...[id number] Specimen Comment: No. of containers..01 ThinPrep Vial Result Comment: This liquid based ThinPrep(R) pap test was screened with the use of an image guided system. Performed By: #### L 7400.0353 #### [facility] [address] [place], [place], [id number] DIAG Comment Normal . [facility] Comment on above: Order Comment: Speci men Comment: [id number] Specimen Comment: Source.............Cervix Specimen Comment: LMP / Prev Treat...[id number] Specimen Comment: No. of containers..01 ThinPrep Vial Result Comment: NEGA TIVE FOR INTRAEPITHELIAL LESION OR MALIGNANCY. Performed By: #### L 7400.0353 #### [facility] [address] [place], [address] HPV RFLX Comment Normal . [facility] Comment on above: Order Comment: Speci men Comment: [id number] Specimen Comment: Source.............Cervix Specimen Comment: LMP / Prev Treat...[id number] Specimen Comment: No. of containers..01 ThinPrep Vial Result Comment: The HPV DNA reflex criteria were not met with this specimen result therefore, no HPV testing was performed. Performed at: [address] [id number] Spun Paste Machine Operator: Vida Serrato MD, Phone: [phone] Performed By: #### L 7400.0353 #### [facility] [address] [place], [address] PAPSMR Comment Normal . [facility] Comment on above: Order Comment: Speci men Comment: [id number] Specimen Comment: Source.............Cervix Specimen Comment: LMP / Prev Treat...[id number] Specimen Comment: No. of containers..01 ThinPrep Vial Result Comment: The Pap smear is a screening test designed to aid in the detection of premalignant and malignant conditions of the uterine cervix. It is not a diagnostic procedure and should not be used as the sole means of detecting cervical cancer. Both false-positive and false-negative reports do occur. Performed By: #### L 7400.0353 #### [facility] [address] [place], [place], [id number] PERFORM Comment Normal . [facility] Comment on above: Order Comment: Speci men Comment: [id number] Specimen Comment: Source.............Cervix Specimen Comment: LMP / Prev Treat...[id number] Specimen Comment: No. of containers..01 ThinPrep Vial Result Comment: Ayo Mcfarland, Commercial Painter (ASCP) Performed By: #### L 7400.0353 #### [facility] [address] [place], [address] Boot Turner Office Visit Reporton 10-12-2024 Boot Turner Office Visit Report [facility] [address] [facility], [address] [place] [address] OFFICE VISIT Date of Service: 10/19/24 MR#: [id number] Acct: [id number] Name: PAMELA JEONG Rep #: [id number] 31 : 1995 Provider: JHOANA Bal Age/Sex: 29/F [place] [facility] [place]: Signed Intake Vital Signs 01/14/23 15:59 [...] Method room air 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 Normal [facility] Basophil percentageOrdered B y: Kristian Carpenter on 02-14-2024 Chloride [Moles/Vol] 105 mmol/L 98-107 [facility] Cholesterol [Mass/Vol] 208 mg/dL <200 [facility] Comment on above: <200 mg/dL Desirable 200-240 mg/dL Borderline >240 mg/dL High Risk Glucose [Mass/Vol] 84 mg/dL 74-106 [facility] Potassium [Moles/Vol] 3.8 mmol/L 3.5-5.1 [facility] Sodium [Moles/Vol] 138 mmol/L 136-145 [facility] Triglyceride [Mass/Vol] 51 mg/dL <199 [facility] Comment on above: The drugs N-Acetylcy steine and Metamizole may falsely depress this assay.Serum Triglycerides Reference Interval Normal <150 mg/dL Borderline high 150 - 199 mg/dL High 200 - 499 mg/dL Very High > or = 500 mg/dL Laboratory - Chemistry and C hemistry - challengeOrdered By: Kristian Carpenter on 02-14-2024 Cholesterol in HDL [Mass/Vol] 92 mg/dL >40 [facility] Comment on above: The drugs N-Acetylcy steine and Metamizole may falsely depress this assay. Reference Range HDL <40 mg/dL Low HDL Cholesterol HDL >or= 60 mg/dL High HDL Cholesterol Cholesterol in LDL [Mass/Vol] 106 mg/dL 0-130 [facility] CO2 [Moles/Vol] 28.0 mmol/L 21.0-32.0 [facility] Urea nitrogen/Creatinine [Mass ratio] 21.2 mg/mg 10-20 [facility] No Panel InformationOrdered By: Kristian Carpenter on 02-14-2024 Estimated GFR (MDRD) Amer 119 mL/min >60 [facility] Comment on above: GFR Calc Estimated GFR (MDRD) Non-Af Amer 98 mL/min >60 [facility] Comment on above: Non- GFR Calc VLDL Cholesterol 10 mg/dL 5-40 [facility] Serum or plasma calcium juan urement (mass/volume)Ordered By: Kristian Carpenter on 02-14-2024 Calcium [Mass/Vol] 8.6 mg/dL 8.5-10.1 [facility] Serum or plasma creatinine m easurement (mass/volume)Ordered By: Kristian Carpenter on 02-14-2024 Creatinine [Mass/Vol] 0.76 mg/dL 0.55-1.02 [facility] Comment on above: The validity of the calculated GFR & GFRAA in patients over 70 years has not been determined. Clinical correlation is essential. Serum or plasma urea nitroge n measurement (mass/volume)Ordered By: Kristian Carpenter on 02-14-2024 Urea nitrogen [Mass/Vol] 16 mg/dL 7-18 [facility] Thin prep Papanicolaou smear with manual screeningOrdered By: Kristian Carpenter on 02-14-2024 Thin prep Papanicolaou smear with manual screening 5 5-15 [facility] Basophil percentageOrdered B y: Lance Schneider on 02-06-2024 Bilirubin [Mass/Vol] 0.30 mg/dL 0.20-1.00 [facility] Comment on above: For patients on eltr ombopag therapy, use of Dimension Bureau TBIL is not recommended. Chloride [Moles/Vol] 103 mmol/L 98-107 [facility] Glucose [Mass/Vol] 77 mg/dL 74-106 [facility] Potassium [Moles/Vol] 3.8 mmol/L 3.5-5.1 [facility] Protein [Mass/Vol] 7.4 g/dL 6.4-8.2 [facility] Sodium [Moles/Vol] 136 mmol/L 136-145 [facility] Laboratory - Chemistry and C hemistry - challengeOrdered By: Lance Schneider on 02-06-2024 Albumin/Globulin [Mass ratio] 0.9 {ratio} 0.9-2.4 [facility] ALP [Catalytic activity/Vol] 69 U/L 45-117 [facility] ALT [Catalytic activity/Vol] 33 U/L 13-56 [facility] CO2 [Moles/Vol] 30.0 mmol/L 21.0-32.0 [facility] Globulin (S) [Mass/Vol] 3.8 g/dL 2.2-4.2 [facility] Urea nitrogen/Creatinine [Mass ratio] 16.3 mg/mg 10-20 [facility] No Panel InformationOrdered By: Lance Schneider on 02-06-2024 Estimated GFR (MDRD) Amer 135 mL/min >60 [facility] Comment on above: GFR Calc Estimated GFR (MDRD) Non-Af Amer 112 mL/min >60 [facility] Comment on above: Non- GFR Calc Thyroglobulin Antibody < 1.0 IU/mL 0.0-0.9 [facility] Comment on above: Thyroglobulin Antibo dy measured by Jaelyn CoulterMethodologyIt should be noted that the presence of thyroglobulinantibodies may not be pathogenic nor diagnostic, especiallyat very low levels. The assay kiln stoker has found thatfour percent of individuals without evidence of thyroiddisease or autoimmunity will have positive TgAb levels upto 4 IU/mL. Thyroglobulin Level 0.1 ng/mL 1.5-38.5 [facility] Comment on above: According to the Rosie replaced by [facility] [employer],the reference interval for Thyroglobulin (TG) should berelated to euthyroid patients and not for patients whounderwent thyroidectomy. TG reference intervals for thesepatients depend on the residual mass of the thyroid tissueleft after surgery. Establishing a post-operative baselineis recommended. The assay limit of quantitation is 0.1ng/mLThyroglobulin measured by Jaelyn Laura ImmunometricAssayPerformed at: [facility] [id number] Director: Viktor Tobias PhD, Phone: [phone] Serum or plasma calcium juan urement (mass/volume)Ordered By: Lance Schneider on 02-06-2024 Calcium [Mass/Vol] 8.5 mg/dL 8.5-10.1 [facility] Serum or plasma creatinine m easurement (mass/volume)Ordered By: Lance Schneider on 02-06-2024 Creatinine [Mass/Vol] 0.68 mg/dL 0.55-1.02 [facility] Comment on above: The validity of the calculated GFR & GFRAA in patients over 70 years has not been determined. Clinical correlation is essential. Serum or plasma thyroid stim ulating hormone (TSH) measurement (units/volume)Ordered By: Lance Schneider on 02-06-2024 TSH Qn 0.01 uIU/mL 0.358-3.74 [facility] Serum or plasma urea nitroge n measurement (mass/volume)Ordered By: Lance Schneider on 02-06-2024 Urea nitrogen [Mass/Vol] 11 mg/dL 7-18 [facility] Thin prep Papanicolaou smear with manual screeningOrdered By: Lance Schneider on 02-06-2024 Thin prep Papanicolaou smear with manual screening 3.6 g/dL 3.2-5.0 [facility] Thin prep Papanicolaou smear with manual screening 23 U/L 15-37 [facility] Thin prep Papanicolaou smear with manual screening 3 5-15 [facility] Thin prep Papanicolaou smear with manual screening 0.96 ng/dL 0.76-1.46 [facility] Laboratory - Chemistry and C hemistry - challengeOrdered By: Lance Schneider on 07-05-2023 Free T4 [Mass/Vol] 1.12 ng/dL 0.76-1.46 [facility] No Panel InformationOrdered By: Lance Schneider on 07-05-2023 Thyroid Stimulating Hormone (TSH) 0.75 uIU/mL 0.358-3.74 [facility] Absolute lymphocyte countOrd ered By: Dr. Schneider on 04-04-2023 Lymphocytes Auto (Unsp spec) [#/Vol] 2.29 10*3/uL 0.83-4.51 [facility] Basophil percentageOrdered B y: Dr. Schneider on 04-04-2023 Basophils/100 WBC (Bld) 0.5 % 0-1 [facility] Eosinophils/100 WBC (Bld) 1.4 % 0-5 [facility] Neutrophils (Bld) [#/Vol] 5.5 10*3/uL 2.0-7.7 [facility] Neutrophils/100 WBC (Bld) 65.0 % 47-70 [facility] WBC (Bld) [#/Vol] 8.5 10*3/uL 4.4-11.0 [facility] Blood erythrocytes count (nu mber/volume)Ordered By: Dr. Schneider on 04-04-2023 RBC (Bld) [#/Vol] 4.19 10*6/uL 4.2-5.4 [facility] Blood hemoglobin measurement (mass/volume)Ordered By: Dr. Schneider on 04-04-2023 Hemoglobin (Bld) [Mass/Vol] 12.2 g/dL 12.0-15.0 [facility] Blood lymphocytes/100 leukoc ytesOrdered By: Dr. Schneider on 04-04-2023 Lymphocytes/100 WBC (Bld) 26.9 % 19-41 [facility] Blood monocytes/100 leukocyt esOrdered By: Dr. Schneider on 04-04-2023 Monocytes/100 WBC (Bld) 6.0 % 0-10 [facility] Blood platelet mean volumeOr dered By: Dr. Schneider on 04-04-2023 Platelet mean volume (Bld) [Entitic vol] 10.6 fL 6.2-12.0 [facility] Determination of erythrocyte mean corpuscular volume (MCV)Ordered By: Dr. Schneider on 04-04-2023 MCV (RBC) [Entitic vol] 91.6 fL 81-99 [facility] Hematocrit Auto (Bld) [Volum e fraction]Ordered By: Dr. Schneider on 04-04-2023 Hematocrit (Bld) [Volume fraction] 38.4 % 37-47 [facility] Laboratory - Chemistry and C hemistry - challengeOrdered By: Dr. Schneider on 04-04-2023 Free T4 [Mass/Vol] 0.97 ng/dL 0.76-1.46 [facility] Laboratory - Hematology and Cell countsOrdered By: Dr. Schneider on 04-04-2023 Erythrocyte distribution width (RBC) [Entitic vol] 43.9 fL 35.1-43.9 [facility] Erythrocyte distribution width (RBC) [Ratio] 13.1 % 11.6-14.6 [facility] Immature granulocytes/100 WBC (Bld) 0.200 % 0.0-0.9 [facility] Comment on above: IG% - Immature Granu locytes (promyelocytes, myelocytes and metamyelocytes) > 1% indicates that a LEFT SHIFT is Present. MCH (RBC) [Entitic mass] 29.1 pg 27.0-32.0 [facility] Nucleated RBC/100 WBC (Bld) [Ratio] 0 % 0-5 [facility] MCHC Auto (RBC) [Mass/Vol]Or dered By: Dr. Schneider on 04-04-2023 MCHC (RBC) [Mass/Vol] 31.8 g/dL 32-36 [facility] No Panel InformationOrdered By: Dr. Schneider on 04-04-2023 Thyroglobulin Antibody < 1.0 IU/mL 0.0-0.9 [facility] Comment on above: Thyroglobulin Antibo dy measured by Jaelyn CoulterMethodology Thyroglobulin Level 0.1 ng/mL 1.5-38.5 [facility] Comment on above: According to the [employer] replaced by [facility] [employer],the reference interval for Thyroglobulin (TG) should berelated to euthyroid patients and not for patients whounderwent thyroidectomy. TG reference intervals for thesepatients depend on the residual mass of the thyroid tissueleft after surgery. Establishing a post-operative baselineis recommended. The assay limit of quantitation is 0.1ng/mLThyroglobulin measured by Jaelyn [place] ImmunometricAssayPerformed at: - [facility] [id number] Director: Viktor Tobias PhD, Phone: [phone] Thyroid Stimulating Hormone (TSH) 0.80 uIU/mL 0.358-3.74 [facility] Platelets bldOrdered By: Dr. Schneider on 04-04-2023 Platelets (Bld) [#/Vol] 282 10*3/uL 150-450 [facility] Serum or plasma ferritin jan surement (mass/volume)Ordered By: Dr. Schneider on 04-04-2023 Ferritin [Mass/Vol] 36 ng/mL 8-252 [facility] Laboratory - Chemistry and C hemistry - challengeOrdered By: Iesha Davis on 11-09-2022 Free T4 [Mass/Vol] 0.98 ng/dL 0.76-1.46 [facility] No Panel InformationOrdered By: Iesah Davis on 11-09-2022 Thyroid Stimulating Hormone (TSH) 3.15 uIU/mL 0.358-3.74 [facility] Basophil percentageOrdered B y: HEALTH ASSESSMENT on 08-02-2022 Cholesterol [Mass/Vol] 178 mg/dL <200 [facility] Comment on above: <200 mg/dL Desirable 200-240 mg/dL Borderline >240 mg/dL High Risk Glucose [Mass/Vol] 78 mg/dL 74-106 [facility] Triglyceride [Mass/Vol] 69 mg/dL <199 [facility] Comment on above: The drugs N-Acetylcy steine and Metamizole may falsely depress this assay.Serum Triglycerides Reference Interval Normal <150 mg/dL Borderline high 150 - 199 mg/dL High 200 - 499 mg/dL Very High > or = 500 mg/dL Serum or plasma cholesterol in HDL measurement (mass/volume)Ordered By: HEALTH ASSESSMENT on 08-02-2022 Cholesterol in HDL [Mass/Vol] 76 mg/dL >40 [facility] Comment on above: The drugs N-Acetylcy steine and Metamizole may falsely depress this assay. Reference Range HDL <40 mg/dL Low HDL Cholesterol HDL >or= 60 mg/dL High HDL Cholesterol Serum or plasma cholesterol in VLDL measurement (mass/volume)Ordered By: HEALTH ASSESSMENT on 08-02-2022 Cholesterol in VLDL [Mass/Vol] 14 mg/dL 5-40 [facility] Serum or plasma low density lipoprotein (LDL) cholesterol measurement (mass/volume)Ordered By: HEALTH ASSESSMENT on 08-02-2022 Cholesterol in LDL [Mass/Vol] 88 mg/dL 0-130 [facility] Laboratory - Chemistry and C hemistry - challengeon 06-27-2022 Free T4 [Mass/Vol] 0.98 ng/dL 0.76-1.46 [facility] Work Phone: No Panel Informationon 06-27 Thyroid Stimulating Hormone (TSH) 0.63 uIU/mL 0.358-3.74 [facility] Work Phone: Laboratory - Chemistry and C hemistry - challengeon 03-29-2022 Free T4 [Mass/Vol] 0.87 ng/dL 0.76-1.46 [facility] Work Phone: No Panel Informationon 03-29 Thyroglobulin Antibody < 1.0 IU/mL 0.0-0.9 [facility] Work Phone: Comment on above: Thyroglobulin Antibo dy measured by Jaelyn CoulterMethodology Thyroglobulin Level 0.1 ng/mL 1.5-38.5 [facility] Work Phone: Comment on above: According to the [facility] [employer],the reference interval for Thyroglobulin (TG) should berelated to euthyroid patients and not for patients whounderwent thyroidectomy. TG reference intervals for thesepatients depend on the residual mass of the thyroid tissueleft after surgery. Establishing a post-operative baselineis recommended. The assay limit of quantitation is 0.1ng/mLThyroglobulin measured by Rypos ImmunometricAssayPerformed at: [facility] Director: Viktor Tobias PhD, Phone: [phone] Thyroid Stimulating Hormone (TSH) 3.92 uIU/mL 0.358-3.74 [facility] Work Phone: Vital Signs Date Time Vital Sign Value Performing Clinician Eufemiai madison 07-19-2025 13:10040 Body height 167.[address] Kristian Carpenter MD Work Phone: [facility] 07-19-2025 13:040 Body mass index (BMI) [Ratio] 22.8 kg/m2 Dr. Kristian Carpenter MD Work Phone: [facility] 07-19-2025 13:040 Body weight 64.[address] Kristian Carpenter MD Work Phone: [facility] 07-19-2025 13:09040 Diastolic blood pressure 66 mm[Hg] Dr. Kristian Carpenter MD Work Phone: [facility] 07-19-2025 13:09-0400 Systolic blood pressure 103 mm[Hg] Dr. Kristian Carpenter MD Work Phone: [facility] 06-30-2025 15:58-0400 Body height 167.[address] Kristian Carpenter MD Work Phone: 1(393)728-960350 [address] 06-30-2025 15:58-0400 Body mass index (BMI) [Ratio] 23 kg/m2 Dr. Kristian Carpenter MD Work Phone: 6(112)323-684121 [place] [address] 06-30-2025 15:58-0400 Body weight 64.[address] Kristian Carpenter MD Work Phone: 9(614)960-887996 [place] [address] 06-30-2025 15:58-0400 Diastolic blood pressure 64 mm[Hg] Dr. Kristian Carpenter MD Work Phone: 2(972)942-165450 [address] 06-30-2025 15:58-0400 Systolic blood pressure 97 mm[Hg] Dr. Kristian Carpenter MD Work Phone: 9(870)318-817550 [address] 03-30-2025 13:00-0400 Body height 167.[address] Kristian Carpenter MD Work Phone: 0(399)100-371250 [address] 03-30-2025 13:00-0400 Body mass index (BMI) [Ratio] 23.8 kg/m2 Dr. Kristian Carpenter MD Work Phone: 3(392)329-448521 [place] [address] 03-30-2025 13:00-0400 Body weight 67.[address] Kristian Carpenter MD Work Phone: [facility] 03-30-2025 13:00-0400 Diastolic blood pressure 75 mm[Hg] Dr. Kristian Carpenter MD Work Phone: 8(461)734-699121 [place] [address] 03-30-2025 13:00-0400 Heart rate 76 /min Dr. Kristian Carpenter MD Work Phone: [facility] 03-30-2025 13:00-0400 SaO2% (BldA) [Mass fraction] 98 % Dr. Kristian Carpenter MD Work Phone: [facility] 03-30-2025 13:00-0400 Systolic blood pressure 114 mm[Hg] Dr. Kristian Carpenter MD Work Phone: [facility] 11-30-2023 10:36-0500 Body height 167.[address] Kristian Carpenter Work Phone: [facility] 11-30-2023 10:36-0500 Body mass index (BMI) [Ratio] 24.3 kg/m2 Dr. Kristian Carpenter Work Phone: [facility] 11-30-2023 10:36-0500 Body temperature 98.4 [degF] Dr. Kristian Carpenter Work Phone: 8(850)679-987121 [place] [address] 11-30-2023 10:36-0500 Body weight 68.[address] Kristian Carpenter Work Phone: [facility] 11-30-2023 10:36-0500 Diastolic blood pressure 68 mm[Hg] Dr. Kristian Carpenter Work Phone: [facility] 11-30-2023 10:36-0500 Heart rate 100 /min Dr. Kristian Carpenter Work Phone: [facility] 11-30-2023 10:36-0500 Respiratory rate 12 /min Dr. Kristian Carpenter Work Phone: [facility] 11-30-2023 10:36-0500 SaO2% (BldA) [Mass fraction] 96 % Dr. Kristian Carpenter Work Phone: [facility] 11-30-2023 10:36-0500 Systolic blood pressure 112 mm[Hg] Dr. Kristian Carpenter Work Phone: [facility] 01-14-2023 15:59-0400 Body height 170.[address] Kristian Carpenter Work Phone: [facility] 01-14-2023 15:59-0400 Body mass index (BMI) [Ratio] 23.6 kg/m2 Dr. Kristian Carpenter Work Phone: [facility] 01-14-2023 15:59-0400 Body temperature 98.2 [degF] Dr. Kristian Carpenter Work Phone: [facility] 01-14-2023 15:59-0400 Body weight 68.[address] Kristian Carpenter Work Phone: [facility] 01-14-2023 15:59-0400 Diastolic blood pressure 61 mm[Hg] Dr. Kristian Carpenter Work Phone: [facility] 01-14-2023 15:59-0400 Heart rate 61 /min Dr. Kristian Carpenter Work Phone: [facility] 01-14-2023 15:59-0400 Respiratory rate 18 /min Dr. Kristian Carpenter Work Phone: [facility] 01-14-2023 15:59-0400 SaO2% (BldA) [Mass fraction] 97 % Dr. Kristian Carpenter Work Phone: [facility] 01-14-2023 15:59-0400 Systolic blood pressure 95 mm[Hg] Dr. Kristian Carpenter Work Phone: [facility] 01-15-2022 16:03-0400 Body height 170.[address] Kristian Carpenter Work Phone: [facility] Work Phone: 01-15-2022 16:03-0400 Body mass index (BMI) [Ratio] 25.9 kg/m2 Dr. Kristian Carpenter Work Phone: [facility] Work Phone: 01-15-2022 16:03-0400 Body temperature 95.5 [degF] Dr. Kristian Carpenter Work Phone: [facility] Work Phone: 01-15-2022 16:03-0400 Body weight 74.[address] Kristian Carpenter Work Phone: [facility] Work Phone: 01-15-2022 16:03-0400 Diastolic blood pressure 80 mm[Hg] Dr. Kristian Carpenter Work Phone: [facility] Work Phone: 01-15-2022 16:03-0400 Heart rate 56 /min Dr. Kristian Carpenter Work Phone: [facility] Work Phone: 01-15-2022 16:03-0400 Respiratory rate 16 /min Dr. Kristian Carpenter Work Phone: [facility] Work Phone: 01-15-2022 16:03-0400 SaO2% (BldA) [Mass fraction] 99 % Dr. Kristian Carpenter Work Phone: [facility] Work Phone: 01-15-2022 16:03-0400 Systolic blood pressure 122 mm[Hg] Dr. Kristian Carpenter Work Phone: [facility] Work Phone: Encounters Encounter Date Encounter Type Care Provider Facility Start: 07-19-2025 End: 07-19-[address] Chely Escobar MD -[facility] Work Phone: Start: 07-19-2025 End: 07-19-2025 ambulatory Chely Escobar [facility] Start: 07-08-2025 End: 07-08-[address] Kristian Carpenter MD Work Phone: -Ultrasound [facility] Start: 07-08-2025 End: 07-08-2025 Patient encounter procedure Funmi ELY -Ultrasound [facility] Work Phone: Start: 07-08-2025 End: 07-08-2025 ambulatory Kristian Carpenter Facility:[facility] Start: 06-30-2025 End: 06-30-2025 Patient encounter procedure Funmi ELY -[facility] Work Phone: Start: 06-30-2025 End: 06-30-[address] Kristian Carpenter MD Work Phone: -[facility] Start: 03-30-2025 End: 03-30-[address] Lance Schneider MD -[facility] Work Phone: Start: 03-30-2025 End: 03-30-[address] Kristian Carpenter MD Work Phone: [facility] Work Phone: Start: 03-30-2025 End: 03-30-2025 ambulatory Kristian Carpenter Facility:[facility] Start: 10-19-2024 End: 10-19-2024 ambulatory [facility] Facility:[facility] Start: 10-19-2024 End: 10-19-2024 ambulatory [facility] Facility:[facility] Start: 02-14-2024 End: 02-14-[address] Kristian Carpenter Work Phone: [facility] Work Phone: Start: 02-14-2024 End: 02-14-[address] Kristian Carpenter Work Phone: [facility]Labor[facility] Work Phone: Start: 02-06-2024 End: 02-06-[address] Kristian Carpenter Work Phone: [facility] Work Phone: Start: 02-06-2024 End: 02-06-[address] Kristian Carpenter Work Phone: [facility] Start: 11-30-2023 End: 11-30-[address] Kristian Carpenter Work Phone: [facility] Work Phone: Start: 07-05-2023 End: 07-05-2023 ambulatory [facility] Work Phone: Start: 07-05-2023 End: 07-05-2023 Patient encounter procedure [facility] Start: 04-04-2023 End: 04-04-[address] Kristian Carpenter Work Phone: [facility] Work Phone: Start: 04-04-2023 End: 04-04-[address] Kristian Carpenter Work Phone: [facility] Start: 01-14-2023 End: 01-14-[address] Kristian Carpenter Work Phone: [facility] Start: 11-09-2022 End: 11-09-2022 ambulatory [facility] Work Phone: Start: 11-09-2022 End: 11-09-2022 Patient encounter procedure [facility] Start: 08-02-2022 Registered Referred [facility] Start: 06-27-2022 End: 06-27-2022 ambulatory [facility] Work Phone: Start: 06-27-2022 End: 06-27-2022 Patient encounter procedure [facility] Start: 03-29-2022 End: 03-29-[address] Kristian Carpenter Work Phone: [facility] Start: 01-15-2022 End: 01-15-[address] Kristian Carpenter Work Phone: [facility] Start: 12-22-2021 End: 12-22-[address] Kristian Carpenter Work Phone: [facility]-Radiology, [facility] Procedures Date Procedure Procedure Detail Performing Clinician Start: 07-08-[address] Kristian Carpenter MD Work Phone: Start: 03-30-[address] Kristian [...] limit of quantitation is 0.1ng/mLThyroglobulin measured by Rypos ImmunometricAssayPerformed at: [facility] LabRobert Ville [id number] [place], [place] [id number] Director: Viktor Tobias PhD, Phone: [phone] Start: 03-30-[address] Marcelo Carpenter MD Work Phone: Comment on above: Thyroglobulin Antibody measured by [employer] an CoulterMethodologyIt should be noted that the presence of thyroglobulinantibodies may not be pathogenic nor diagnostic, especiallyat very low levels. The assay kiln stoker has found thatfour percent of individuals without evidence of thyroiddisease or autoimmunity will have positive TgAb levels upto 4 IU/mL. Start: 12-22-2021 X-ray for colonic transit study Dr. Kristian Carpenter Work Phone: Plan of Treatment Date Care Activity Detail Author Start: 03-30-2025 End: 03-30-2025 T4 free measurement [facility] Start: 03-30-2025 Thyroglobulin and Th yrogobulin Ab panel - Serum or Plasma [facility] Start: 03-30-2025 End: 03-30-2025 Thyroid stimulating hormone measurement [facility] T4 free measurement [facility] Thyroglobulin antibo dy measurement [facility] Thyroid stimulating hormone measurement [facility] US Pelvis [facility] Immunizations Immunization Date Immunization Notes Care Provider Fa moon 07-21-2021 Covid (Pfizer) Dr. Kristian john Work Phone: [facility] Payers Date Payer Category Payer Self-pay [id number] 2023 Private Health Insurance [id number] Private Health Insurance [id number] Unknown [id number] Unknown [id number] 2.16.8 [id number] Unknown [id number] 2.16.8 [id number] Unknown [id number] 2.16.8 [id number] Unknown [id number] 2.16.8 [id number] Unknown [id number] 2.16.8 [id number] Unknown [id number] 2.16.8 [id number] Unknown [id number] 2.16.8 [id number] Unknown [id number] 2.16.8 [id number] Social History Date Type Detail Facility Start: 01-15-2022 End: 11-30-2023 Tobacco smoking status CTIS Unknown if ever smoked [facility] Start: 1995 Sex Assigned At Female [facility] Start: 10-19-2024 Tobacco smoking stat us CTIS Never smoked tobacco (finding) [facility] Sex Female [facility] Medical Equipment Procedure Code Equipment Code Equipment Origin al Text Equipment Identifier Dates Thyroidectomy DRESSING,FIBRILL AR 1958 FDA Start: 07-31-2021 Thyroidectomy SUTURE,LIGA CLIP MED [id number] FDA Start: 07-31-2021 Thyroidectomy SUTURE,LIGA CLIP SM LT-100 FDA Start: 07-31-2021 Thyroidectomy DRESSING,FIBRILL AR 1958 FDA Start: 07-31-2021 Thyroidectomy SUTURE,LIGA CLIP [...] SUTURE,LIGA CLIP SM LT-100 FDA Start: 07-31-2021 Clinical Notes 03-30-2025 to 07-19-2025 Note Date & Type Note Facility 07-19-2025 Progress note [facility] 07-09-2025 Radiology Diagnostic study note [facility] Imaging Services [address] [place] [address] Pelvic w/ Transvaginal MR#: [id number] Acct: [id number] Name: PAMELA JEONG Rep #: [id number] : 1995 F 29 From: Jean-Pierre Elizalde MD PCP: Dr. Kristian Carpenter MD Status: [facility] [address] Study:Pelvic w/ Transvaginal Date of Exam: 07/08/25 Exam# [id number] Ordering Dr: Funmi Buchanan HOME CARE CONSULTANT-C PROCEDURE: PELVIC W/ TRANSVAGINAL REASON FOR EXAM: IRREGULAR PERIODS TECHNIQUE: Procedure Code: [id number] Modality: US Procedure: PELVIC W/ TRANSVAGINAL COMPARISON: None FINDINGS: LMP: June 21, 2025. Measurements: Uterus: 7 cm x 4.2 cm x 2.6 cm with a volume of 40.8 mL Endometrial Thickness: 3 mm. Small amount of endometrial fluid. There is evidence of an IUD. Right Ovary: 2.8 cm x 1.7 cm x 1.2 cm with a volume of 3.1 mL. Left Ovary: 2.8 cm x 2 cm x 1.5 cm with a volume of 4.6 mL. TRANSABDOMINAL: Uterus: Normal size, myometrial echotexture, and contour. Endometrium: Small amount of endometrial fluid. IUD is seen within the endometrium. Right ovary: Normal size and echotexture. Left ovary: Normal size and echotexture. Other: No large pelvic mass identified. Transvaginal sonography was performed to better visualize the endometrium. TRANSVAGINAL: Uterus: Anteverted. Endometrium: Small amount of endometrial fluid. IUD is seen within the endometrium. Right ovary: Normal size and echotexture. Left ovary: Normal size and echotexture. Other adnexal findings: None. Cul-de-sac: No free intraperitoneal fluid identified. Tenderness: No tenderness US/Pelvic w/ Transvaginal IMPRESSION: IUD is seen within the endometrium. No other abnormality is seen. Reading Location: [place] [address] CC: JHOANA Buchanan; Dr. Kristian Carpenter MD ~ Field Geologist: Signed [facility] 03-30-2025 Evaluation note Diagnosis Onset Date Resolution Papillary thyroid carcinoma 2020 chronic March 30, 2025 12:59pm Postoperative primary hypothyroidism chronic March 30, 2025 12:59pm [facility] Work Phone: 1(501) 989-490506-10-2025 Evaluation note* Diagnosis Onset Date Resolution Status Admit Date Papillary thyroid carcinoma 2020 chronic March 30, 2025 12:59pm Postoperative primary hypothyroidism chronic March 30, 2025 12:59pm Irregular menses acute Septembe r 2024 3:49pm Encounter for management of intrauterine contraceptive device (IUD) acute July 19, 2025 12:48pm [facility] 12:48[facility] Work Phone: [phone] 443-439106-10-2025 Progress [facility] [address] [place] [address]. [address] [place] [address] OFFICE VISIT Date of Service: 03/30/25 MR#: [id number] Acct: [id number] Name: PAMELA JEONG Rep #: [id number] : 1995 Provider: Dr. Lance Schneider MD Age/Sex: 29/F Location: [facility] [place] Status: Signed Intake Vital Signs 03/30/24 13:02 [...] 0 current occupational status: employed current occupation: [employer] sexually active: Yes Smoking Status: Never smoker alcohol intake: current alcohol intake frequency: a few times a month seatbelt use: always do you feel safe at home: Yes additional social history: Boyfriend - Justin LESLIE NELSON Chief Complaint: thyroid cancer Details: PAMELA JEONG, [...] least four hours after eating. Then wait 30-60minutes before consuming any other food or beverage, especially coffee. Separate levothyroxine fromvitamins by at least 4 hours. Stop taking [...] E89.0 Papillary thyroid carcinoma C73 03/30/25 1322 Date _ Lance Schneider MD Cosigner Signature: Date (if applicable) CC: Dr. Kristian Carpenter MD ~ [facility]06-10-2025 Progress note Author Lance Schneider [facility] Note Date/Time March 30, 2025 1:22 pm [facility] [address] [place] [address]. [address] [place] [address] OFFICE VISIT Date of Service: 03/30/25 MR#: [id number] Acct: [id number] Name: PAMELA JEONG Rep #: [id number] : 1995 Provider: Dr. Lance Schneider MD Age/Sex: 29/F Location: [facility] [place] Status: Signed Intake Vital Signs 03/30/24 13:02 [...] 0 current occupational status: employed current occupation: [employer] sexually active: Yes Smoking Status: Never smoker alcohol intake: current alcohol intake frequency: a few times a month seatbelt use: always do you feel safe at home: Yes additional social history: Boyfriend - Justin [facility] HPI Chief Complaint: thyroid cancer Details: PAMELA [...] applicable) CC: Dr. Kristian Carpenter MD ~ [facility] Work Phone: Evaluation note* Diagnosis Onset Date Resolution Status Papillary thyroid carcinoma 2020 acute Postoperative primary hypothyroidism acute [facility] Work Phone: Evaluation noteNo assessment information available [facility] Work Phone: Evaluation note* Diagnosis Onset Date Resolution Status Acute frontal sinusitis acut e [facility] Work Phone: Evaluation note* Diagnosis Onset Date Resolution Status Admit Date Papillary thyroid carcinoma 2020 chronic March 30, 2025 12:59pm Postoperative primary hypothyroidism chronic March 30, 2025 12:59pm [facility] Work Phone: Progress note Author Chely Escobar [facility] Note Date/Time July 19, 2025 1:18pm [facility] [address], [address] [place] [address] OFFICE VISIT Date of Service: 07/19/25 MR#: [id number] Acct: [id number] Name: PAMELA JEONG Rep #: [id number] : 1995 Provider: Dr. Bryce Escobar MD Age/Sex: 30/F [place] [facility] [place]: Signed Intake Vital Signs 06/30/25 15:58 07/19/25 13:09 07/19/25 13:10 Height 5 ft 6 in 5 ft 6 in 5 ft 6 in Weight: 141 lb 9 oz BMI 22.8 BP 103/66 Intake Visit Reasons: Surgical consult/IUD removal Client Insights Consultant Required: No Is patient in pain?: No Allergies amoxicillin Allergy (Verified 07/19/25 13:09) Hives Medications ?Medication ?Instructions ?Recorded ?Confirmed ?Type levothyroxine 112 mcg tablet 112 mcg PO QDAY #90 tabs 03/30/25 07/19/25 Rx (Unithroid) Is last menstrual period known: Yes Last Menstrual Period: 06/21/25 Post menopausal: No Patient : No : No Control Method: paragard [facility] Medical History Postoperative primary hypothyroidism Wears contact [...] 0 current occupational status: employed current occupation: [employer] sexually active: Yes Smoking Status: Never smoker alcohol intake: current alcohol intake frequency: a few times a month seatbelt use: always do you feel safe at home: Yes additional social history: Boyfrtamera NELSON Surgical consult/IUD removal Details: PAMELA JEONG is a 30 year old who presents for follow up of iud she was told it may be incorrectly positioned. Female Reproductive History Last Menstrual Period: 06/21/25 ROS Const Constitutional: Denies fatigue, fever(s), headache(s), increased appetite, poor appetite, weight gain or weight loss GI GI: Reports as per HPI; Denies abdominal pain, constipation, nausea or vomiting : Reports as per HPI; Denies difficulty voiding, dysuria, hematuria, pelvic pain, urinary frequency, urinary incontinence, urinary hesitancy, urinary urgency, vaginal discharge, vaginal dryness, vaginal odor, vaginal pruritus or other Exam Const General: cooperative, healthy appearing, comfortable, no acute distress and welldeveloped Orientation: alert HENMT Head: normal to inspection and normocephalic Ears: hearing grossly normal bilaterally and external ears normal Nose: external nose normal and nares normal Face and sinus: normal facial exam Neck Neck: normal visual inspection, no lymphadenopathy and trachea midline Thyroid: thyroid normal Resp Effort & Inspection: normal respiratory effort Musc Other: gross motor intact no deficits, full bilateral strength Skin General: no rashes or lesions noted Neuro Motor: muscle tone normal throughout Coding Level of Care Code Off vis,est,level 2 Diagnoses Encounter for management of intrauterine contraceptive device (IUD) Z30.431 Irregular menses N92.6 Assessment and Plan Assessment and Plan (1) Encounter for management of intrauterine contraceptive device (IUD): Status: Acute Comment: Copper IUD placed 05/2023 (2) Irregular menses: Status: Acute Plan discussed with patient, correctly positioned within the endometrium, patient wishes to keep at this time. routine fu 07/19/25 1331 <Electronically signed by Chely tom MD> Date _ Chely Escobar MD Cosigner Signature: Date (if applicable) CC: ~ [facility] Work Phone: Reason for referral (narrative)No reason for referral [facility] Work Phone: Chief Complaint and Reason for [...] Y FU March 30, 2025 12:5 9pm Chief Complaint Admit Date 1 Y FU March 30, 2025 12:5 9pm Irregular periods, Copper IUD June 30, 2025 3:49pm IRREGULAR PERIODS July 08, 2025 2:25pm Surgical consult/IUD removal June 222024 12:48pm Reason for Visit Admit Date Papillary thyroid carcinoma March 30 025 12:59pm Postoperative primary hypothyroidism Mar 12:59pm Irregular menses June 30, 2025 3:49pm Encounter for management of intrauterine contraceptive device (IUD) July 19, 2025 12:48pm Irregular menses July 19, 2025 12:48pm Family History Relationship Condition Age at Onset Recorded Date/T chuy grandmother Malignant neoplasm of breast Unknown grandfather Malignant neoplasm Unknown Relationship Condition Age at Onset Recorded Date/T chuy grandmother Malignant neoplasm of breast Unknown Malignant neoplasm of ovary Unknown grandfather Malignant neoplasm Unknown Advance Directives Advance Directive Response Recorded Date/ Time Living Will No July 31 8:02pm Power of Canteen Operator No July 31, 2021 8:02pm Advance Directive Response Recorded Date/ Time Living Will No July 31 7:02pm Power of Canteen Operator No July 31, 2021 7:02pm Advance Directive Response Recorded Date/ Time Living Will No July 31 8:02pm Do you have a [facility] Power of Canteen Operator? No July 31, 2021 8:02pm Summary Purpose [...] Kristian Carpenter MD Primary Care Provider Active RALF MarlowC Attending Provider, Referring Pr ovider Active Team [...] June 30, 2025 End: June 30, 2025 Team Status: Active Member Role/Relationship Status Dates Dr. Kristian Carpenter MD Primary care physician Active Team Status: Inactive Member Role/Relationship Status Dates Dr. Kristian Carpenter MD Primary care physician Active Start: March 30, 2025 End: March 30, 2025 Dr. Kristian Carpenter MD Referring Provider Active Start: March 30, 2025 End: March 30, 2025 Dr. Lance Schneider MD Attending physician Active St art: March 30, 2025 End: March 30, 2025 Team Status: Inactive Member Role/Relationship Status Dates Dr. Kristian Carpenter MD Primary care physician Active Start: March 30, 2025 End: March 30, 2025 Dr. Lance Schneider MD Attending physician Active St art: March 30, 2025 End: March 30, 2025 Dr. Lance Schneider MD Referring Provider Active Sta rt: March 30, 2025 End: March 30, 2025 Team Status: Inactive Member Role/Relationship Status Dates Dr. Kristian Carpenter MD Primary care physician Active Start: June 30, 2025 End: June 30, 2025 Dr. Kristian Carpenter MD Referring Provider Active Start: June 30, 2025 End: June 30, 2025 JHOANA Mary Attending physician Active Start: June 30, 2025 End: June 30, 2025 Team Status: Inactive Member Role/Relationship Status Dates Dr. Kristian Carpenter MD Primary care physician Active Start: July 08, 2025 End: July 08, 2025 JHOANA Mary Attending physician Active Start: July 08, 2025 End: July 08, 2025 JHOANA Mary Referring Provider Active Start: July 08, 2025 End: July 08, 2025 Team Status: Inactive Member Role/Relationship Status Dates Dr. Kristian Carpenter MD Primary care physician Active Start: July 19, 2025 End: July 19, 2025 Dr. Kristian Carpenter MD Referring Provider Active Start: July 19, 2025 End: July 19, 2025 Dr. Chely Escobar MD Attending physician Active Start: July 19, 2025 End: July 19, 2025 INFORMATION SOURCE (unrecogn ized section and content) DATE CREATED AUTHOR 07/23/2025 [facility] FOR RECORDS PERTAINING TO PATIENTS WHO [...] BE BASED ON THE PRIMARY CLINICAL RECORDS. [employer] [facility]. provides no warranty or guarantee of the accuracy or completeness of information in this document.
== END | disposition home or self-care (01) ==
PROVIDERS: Visit Provider Internal Medicine Endocrinology, Diabetes & Metabolism
DX: E89.0 Postprocedural hypothyroidism (principal)
CPT/HCPCS: 36415; 84439; 84443